=== PATIENT | female | born 1980 | race Caucasian/White ===

== ENCOUNTER 2017-02-24 11:44 | Emergency (ER) | payer OTHER ==
[2017-02-24 12:03] VITALS: O2SAT 98; BMI 29.9
[2017-02-24] MEDS ORDERED: Sodium Chloride 0.9% 1,000 ML IV STA (12:19)
[2017-02-24] MEDS ORDERED: DiphenhydrAMINE 50 mg/ml Inj IVP STA (12:20)
--- NOTE | 2017-02-24 12:30 | ED PDOC ---
Arrival/HPI - General Chief Complaint: Headache Time Seen by Provider: 02/24/17 12:07 Historian: Patient, Spouse - History of Present Illness Narrative History of Present Illness (Text): 02/24/17 12:27 36 year old female whose past medical history includes headaches presents to the emergency department with 4 day duration of right sided facial pain and headache. History translated by patient's . Patient states this is not the worst headache of her life and feels similar to previous headaches. Patient also reports nausea and vomiting today. Patient reports she took Tylenol with no relief. Time/Duration: < week Symptom Onset: Gradual Symptom Course: Unchanged Modifying Factors (Text): Tylenol with no relief Past Medical History - Provider Review Nursing Documentation Reviewed: Yes - Past History Past History: No Previous - Infectious Disease Hx of Infectious Diseases: None - Tetanus Immunization Tetanus Immunization: Unknown - Past Medical History Past Medical History: No Previous - Cardiac Hx Cardiac Disorders: No - Pulmonary Hx Respiratory Disorders: Yes Hx Pulmonary Embolism: Yes - Neurological Hx Neurological Disorder: No - HEENT Hx HEENT Disorder: No - Renal Hx Renal Disorder: No - Endocrine/Metabolic Hx Endocrine Disorders: No - Hematological/Oncological Hx Blood Disorders: Yes Other/Comment: 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 - Integumentary Hx Dermatological Disorder: No - Musculoskeletal/Rheumatological Hx Musculoskeletal Disorders: No - Gastrointestinal Hx Gastrointestinal Disorders: No - Genitourinary/Gynecological Hx Genitourinary Disorders: No - Psychiatric Hx Psychophysiologic Disorder: No Hx Depression: No Hx Emotional Abuse: No Hx Physical Abuse: No Hx Substance Use: No - Past Surgical History Past Surgical History: No Previous - Suicidal Assessment Feels Threatened In Home Enviroment: No Family/Social History - Physician Review Nursing Documentation Reviewed: Yes Family/Social History: Unknown Family HX Smoking Status: Never Smoked Hx Alcohol Use: Yes Hx Substance Use: No Hx Substance Use Treatment: No Allergies/Home Meds Allergies/Adverse Reactions: Allergies No Known Allergies Allergy (Verified 02/24/17 12:00) Review of Systems - Physician Review All systems were reviewed & negative as marked: Yes Physical Exam - Physical Exam Narrative Physical Exam (Text): - Review of Systems Constitutional: Normal. absent: Fatigue, Weight Change, Fevers Eyes: Normal ENT: Normal Respiratory: Normal absent: SOB, Cough, Sputum Cardiovascular: Normal absent: Chest pain, Palpitations, Syncope Gastrointestinal: Nausea, Vomiting absent: Abdominal pain, Diarrhea Genitourinary: Normal. absent: Dysuria, Frequency, Hematuria Musculoskeletal: Normal. absent: Arthralgias, Back Pain, Neck Pain Skin: Normal Neurological: Right sided facial pain, Headache absent: Focal Weakness Endocrine: Normal Hemo/Lymphatic: Normal Psychiatric: Normal - Physical exam Patient appears age appropriate, speaking full sentences without difficulty - Systems Exam Head: Present: Atraumatic, Normocephalic Pupils: Present: PERRL Extraocular Muscles: Present: EOMI Conjunctiva: Present: Normal Mouth: Present: Moist Mucous Membranes Neck: Present: Normal Range of Motion. No: MIDLINE TENDERNESS, Paraspinal Tenderness Respiratory/Chest: Present: Clear to Auscultation, Good Air Exchange. No: Respiratory Distress, Accessory Muscle Use, Tachypnic Cardiovascular: Present: Regular Rate and Rhythm, Normal S1, S2, Peripheral Pulses Present. No: Murmurs Abdomen: Present: Normal Bowel Sounds, No: Tenderness, Peritoneal Signs, Rebound, Guarding, Distention Back: Present: Normal Inspection. No: Midline Tenderness, Paraspinal Tenderness Upper Extremity: Present: Normal Inspection. No: Cyanosis, Edema Lower Extremity: Present: Normal Inspection. No: Edema Neurological: Present: GCS=15, Speech Normal, cranial nerves II through XII fully intact with no cerebellar abnormality, neuro-sensory fully intact. No focal neurological deficits. Skin: Present: Warm, Dry, Normal Color. No: Rashes Lymphatic: Present: OX3, NI, NC Psychiatric: Present: Alert, Oriented x 3, Normal Insight, Normal Concentration 02/24/17 12:31 Vital Signs Reviewed: Yes Vital Signs Temp Pulse Resp BP Pulse Ox 02/24/17 15:55 97.1 F L 69 12 104/53 L 98 02/24/17 14:00 70 18 114/70 98 02/24/17 12:02 98.7 F 80 17 103/68 98 Temperature: Afebrile Blood Pressure: Normal Pulse: Regular Respiratory Rate: Normal Appearance: Positive for: Well-Appearing, Non-Toxic, Comfortable Pain Distress: None Mental Status: Positive for: Alert and Oriented X 3 Medical Decision Making ED Course and Treatment: Impression: 36 year old female whose past medical history includes headaches presents to the emergency department with 4 day duration of right sided facial pain and headache. On physical exam, patient has no acute findings. Differential Diagnosis included but are not limited to: headache Plan: -- Labs -- Benadryl, Toradol, Reglan -- Reassess and disposition Prior Visits: Notes and results from previous visits were reviewed. Patient last seen in the ED on 07/15/16 for URI symptoms and discharged home with Medrol dose pack. 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 PROCEDURE: CT HEAD WITHOUT CONTRAST. Trouble Tracer : Bethany Park MD IMPRESSION: No acute intracranial abnormality. 02/24/17 17:16 On reevaluation, patient states that she feels much better and would like to be discharged home. Patient states that her headache has fully resolved and now she has no complaints No focal neurological deficits on reexamination Pt states she understands to return to the ER right away for new or worsening symptoms or for inability to f/u with PMD or specialist as instructed. Patient states that she fully agrees with and understands discharge instructions. States that she agrees with the plan and disposition. Verbalized and repeated discharge instructions and plan. I have given the patient opportunity to ask any additional questions. - Lab Interpretations Lab Results: 02/24/17 13:12 02/24/17 13:12 Lab Results 02/24/17 13:12: Sodium 140, Potassium 3.8, Chloride 103, Carbon Dioxide 26, Anion Gap 15, BUN 12, Creatinine 0.7, Est GFR ( Amer) > 60, Est GFR (Non- Af Amer) > 60, Random Glucose 89, Calcium 9.7, Total Bilirubin 0.7, AST 25, ALT 33, Alkaline Phosphatase 71, Total Protein 9.0 H, Albumin 4.7, Globulin 4.3, Albumin/Globulin Ratio 1.1, Lipase 65 02/24/17 13:12: WBC 7.8, RBC 4.18, Hgb 13.2, Hct 39.3, MCV 94.0, MCH 31.6, MCHC 33.6, RDW 12.9, Plt Count 323, MPV 9.5, Gran % 77.2 H, Lymph % (Auto) 19.3 L, Mckean % (Auto) 2.7, Eos % (Auto) 0.3 L, Baso % (Auto) 0.5, Gran # 6.05, Lymph # 1.5, Mckean # 0.2, Eos # 0.0, Baso # 0.04 - RAD Interpretation Radiology Orders: 02/24/17 13:32 HEAD W/O CONTRAST [CT] Stat - Medication Orders Current Medication Orders: Discontinued Medications Diphenhydramine HCl (Benadryl) 25 mg IVP STAT STA Stop: 02/24/17 12:21 Last Admin: 02/24/17 13:55 Dose: 25 mg Sodium Chloride (Sodium Chloride 0.9%) 1,000 mls @ 1,000 mls/hr IV .Q1H STA Stop: 02/24/17 13:18 Last Admin: 02/24/17 13:55 Dose: 1,000 mls/hr Ketorolac Tromethamine (Toradol) 15 mg IVP STAT STA Stop: 02/24/17 12:20 Last Admin: 02/24/17 13:54 Dose: 15 mg Metoclopramide HCl (Reglan) 10 mg IVP STAT STA Stop: 02/24/17 12:21 Last Admin: 02/24/17 13:55 Dose: 10 mg - Scribe Statement The provider has reviewed the documentation as recorded by the Tyree Swann Provider Scribe Attestation: All medical record entries made by the Tyree were at my direction and personally dictated by me. I have reviewed the chart and agree that the record accurately reflects my personal performance of the history, physical exam, medical decision making, and the department course for this patient. I have also personally directed, reviewed, and agree with the discharge instructions and disposition. Disposition/Present on Arrival - Present on Arrival Any Indicators Present on Arrival: No History of DVT/PE: No History of Uncontrolled Diabetes: No Urinary Catheter: No History of Decub. Ulcer: No History Surgical Site Infection Following: None - Disposition Have Diagnosis and Disposition been Completed?: Yes Diagnosis: Headache Disposition: HOME/ ROUTINE Disposition Time: 17:17 Patient Plan: Discharge Condition: GOOD Discharge Instructions (ExitCare): Acute Headache (ED) Additional Instructions: PLEASE RETURN TO THE EMERGENCY DEPARTMENT FOR NEW OR WORSENING SYMPTOMS. RETURN RIGHT AWAY IF YOU CANNOT FOLLOW UP WITH YOUR PRIMARY CARE DOCTOR, CLINIC, OR SPECIALIST IN 1-2 DAYS. Prescriptions: Ibuprofen [Motrin] 600 mg PO Q8 PRN #12 tab PRN Reason: Pain, Moderate (4-7) Referrals: Jason Deluna MD [Primary Care Provider] - Follow up with primary Forms: WORK NOTE
[2017-02-24 13:13] LABS: ADD MANUAL DIFF? NO
[2017-02-24 13:18] LABS: BASO # 0.04 K/mm3 (0.0-2.0); BASO % 0.5 % (0.0-3.0); EOS % 0.3 % (1.5-5.0); GRAN # 6.05 (1.4-6.5); GRAN % 77.2 % (50.0-68.0); HEMATOCRIT 39.3 % (36.0-48.0); LYMPH # 1.5 (1.2-3.4); LYMPH % 19.3 % (22.0-35.0); MEAN CORPUSCULAR HEMOGLOBIN 31.6 pg (25.0-35.0); MEAN CORPUSCULAR HGB CONC 33.6 g/dl (31.0-37.0); MEAN PLATELET VOLUME 9.5 fl (7.0-11.0); MONO # 0.2 (0.1-0.6); MONO % 2.7 % (1.0-6.0); PLATELET COUNT 323 10^3/uL (120.0-450.0); RED CELL DISTRIBUTION WIDTH 12.9 % (11.5-14.5); WHITE BLOOD COUNT 7.8 10^3/ul (4.5-11.0)
[2017-02-24 13:31] LABS: ALB/GLOB RATIO 1.1 (1.1-1.8); ALKALINE PHOSPHATASE 71 U/L (38-133); ALT/SGPT 33 U/L (7-56); AST/SGOT 25 U/L (15-39); BILIRUBIN,TOTAL 0.7 mg/dL (0.2-1.3); BLOOD UREA NITROGEN 12 mg/dL (7-21); CALCIUM 9.7 mg/dL (8.4-10.5); CARBON DIOXIDE 26 mmol/L (21-33); CHLORIDE 103 mmol/L (98-107); GFR AFRICAN-AMERICAN > 60; GLUCOSE,RANDOM 89 mg/dL (70-110); LIPASE 65 U/L (23-300); POTASSIUM 3.8 mmol/L (3.6-5.0); SODIUM 140 mmol/L (132-148)
--- NOTE | 2017-02-24 15:35 | CT ---
PROCEDURE: CT HEAD WITHOUT CONTRAST. HISTORY: Headache COMPARISON: None available. TECHNIQUE: Axial computed tomography images were obtained through the head/brain without intravenous contrast. Radiation dose: Total exam DLP = 688.92 mGy-cm. This CT exam was performed using one or more of the following dose reduction techniques: Automated exposure control, adjustment of the mA and/or kV according to patient size, and/or use of iterative reconstruction technique. FINDINGS: HEMORRHAGE: No intracranial hemorrhage. BRAIN: Estevez-white matter differentiation is preserved. There is no mass, mass effect or abnormal extra-axial fluid collection. There is normal density in the larger dural venous sinuses. VENTRICLES: The ventricles are normal in size, shape and configuration. CALVARIUM: The skull base and calvarium are normal PARANASAL SINUSES: Predominantly clear. MASTOID AIR CELLS: Predominantly clear. OTHER FINDINGS: None. IMPRESSION: No acute intracranial abnormality.
[2017-02-24 15:57] VITALS: BP 104/53; PULSE 69; RESP 12; TEMP 97.1
== END 2017-02-24 17:41 | disposition home or self-care (01) ==
LOC: ED 11:44
DX: R51 Headache (principal)
CPT/HCPCS: 70450; 80053; 83690; 85025; 96361; 96374; 96375; 99285; J1200; J1885; J2765; J7040

== ENCOUNTER 2017-11-20 07:46 | Emergency (ER) | payer OTHER ==
[2017-11-20 07:46] VITALS: BMI 29.9
--- NOTE | 2017-11-20 08:37 | ED PDOC ---
Arrival/HPI - General Chief Complaint: Flu-like Symptoms Time Seen by Provider: 11/20/17 08:11 Historian: Patient, Spouse - History of Present Illness Narrative History of Present Illness (Text): you were treated in the ED today for history of pulmonary embolism during your and you completed blood thinning injections, but now here with nasal congestion, body aches and fevers, sore throat but otherwise without any nausea/ vomiting/headache/dizziness/difficulty breathing/chest pain/abdomen pain/ numbness/tingling/loss of limb function/pain with urination. 11/20/17 08:34 Time/Duration: Other (2 days) Symptom Onset: Gradual Symptom Course: Unchanged Quality: Aching Severity Level: 3 Activities at Onset: Rest Context: Sitting Past Medical History - Provider Review Nursing Documentation Reviewed: Yes - Travel History Have you recently traveled outside [place] w/in the past 3 mons?: No - Past History Past History: No Previous - Infectious Disease Hx of Infectious Diseases: None - Tetanus Immunization Tetanus Immunization: Unknown - Past Medical History Past Medical History: No Previous - Cardiac Hx Cardiac Disorders: No - Pulmonary Hx Respiratory Disorders: Yes Hx Pulmonary Embolism: Yes - Neurological Hx Neurological Disorder: No - HEENT Hx HEENT Disorder: No - Renal Hx Renal Disorder: No - Endocrine/Metabolic Hx Endocrine Disorders: No - Hematological/Oncological Hx Blood Disorders: Yes Other/Comment: 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 - Integumentary Hx Dermatological Disorder: No - Musculoskeletal/Rheumatological Hx Musculoskeletal Disorders: No - Gastrointestinal Hx Gastrointestinal Disorders: No - Genitourinary/Gynecological Hx Genitourinary Disorders: No - Psychiatric Hx Psychophysiologic Disorder: No Hx Substance Use: No - Past Surgical History Past Surgical History: No Previous - Suicidal Assessment Feels Threatened In Home Enviroment: No Family/Social History - Physician Review Nursing Documentation Reviewed: Yes Family/Social History: No Known Family HX Smoking Status: Never Smoked Hx Alcohol Use: Yes Hx Substance Use: No Hx Substance Use Treatment: No Allergies/Home Meds Allergies/Adverse Reactions: Allergies No Known Allergies Allergy (Verified 11/20/17 07:58) Home Medications: Home Meds Medication Instructions Recorded Confirmed No Known Home Med 11/20/17 11/20/17 Review of Systems - Review of Systems Constitutional: Fevers Eyes: Normal ENT: Normal, Sore Throat, Rhinorrhea Respiratory: Normal Cardiovascular: Normal Gastrointestinal: Normal Genitourinary Female: Normal Musculoskeletal: Myalgias Skin: Normal Neurological: Normal Endocrine: Normal Hemo/Lymphatic: Normal Psychiatric: Normal Physical Exam Vital Signs Reviewed: Yes Vital Signs Temp Pulse Resp BP Pulse Ox 11/20/17 10:03 99.5 F 105 H 16 98 11/20/17 07:55 99.3 F 115 H 17 103/58 L 100 Temperature: Afebrile Blood Pressure: Normal Pulse: Tachycardic Respiratory Rate: Normal Appearance: Positive for: Well-Appearing, Non-Toxic, Comfortable Pain Distress: None Mental Status: Positive for: Alert and Oriented X 3 - Systems Exam Head: Present: Atraumatic, Normocephalic Pupils: Present: PERRL Extroacular Muscles: Present: EOMI Conjunctiva: Present: Normal Ears: Present: Normal Mouth: Present: Moist Mucous Membranes Pharnyx: Present: Other (mild pharyngeal irritation wo erythema/fluctuance/ crepitus/exudates) Nose (Internal): Present: Other (sinus congestion) Neck: Present: Normal Range of Motion Respiratory/Chest: Present: Clear to Auscultation, Good Air Exchange Cardiovascular: Present: Regular Rate and Rhythm Abdomen: No: Tenderness, Distention, Normal Bowel Sounds, Peritoneal Signs, Rebound, Guarding, McBurney's Point Tender, Rovsing's Sign Present, Hernias, Feeding Tubes, Ostomy Tubes, Mass/Organomegaly, Scars, Other Back: Present: Normal Inspection Upper Extremity: Present: Normal Inspection Lower Extremity: Present: Normal Inspection Neurological: Present: GCS=15, CN II-XII Intact, Speech Normal, Motor Func Grossly Intact Skin: Present: Warm, Normal Color Psychiatric: Present: Alert, Oriented x 3, Normal Insight, Normal Concentration Medical Decision Making ED Course and Treatment: you were treated in the ED today for history of pulmonary embolism during your and you completed blood thinning injections, but now here with nasal congestion, body aches and fevers, sore throat but otherwise without any nausea/ vomiting/headache/dizziness/difficulty breathing/chest pain/abdomen pain/ numbness/tingling/loss of limb function/pain with urination. You were otherwise breathing easily, pink lips, smiling with your and speaking easily, good strength/sensation, alert/oriented, walking easily, clear lungs, no abdomen tenderness, sinus congestion, mild throat irritation without white spots and noted open airway, no fever temp 99.3, improved mildly fast heart rate 105 related to sinus discomfort and motrin given, stable breathing rate 17 , excellent oxygen level 100% room air, stable blood pressure 103/58, influenza negative, rapid strep negative, urine test negative, motrin done in the ED with improvement, counselled to drink lots of fluids and thus discharged home with . 1. Recommend rest. 2. Recommend humidified air daily for breathing/sinus relief. 3. Recommend follow-up primary care 2-3 days to review symptoms. 4. If any worsening pain, fever, chills, nausea, vomiting, difficulty breathing, numbness, loss of limb function, pain with urination or any medical condition then return to the ED. 11/20/17 09:54 11/20/17 09:55 11/20/17 10:11 Reassessment Condition: Improved - Lab Interpretations Lab Results: Lab Results 11/20/17 08:45: Grp A Beta Strep Ag Negative 11/20/17 08:26: Influenza Typ A,B (EIA) Negative for flu a/b I have reviewed the lab results: Yes - Medication Orders Current Medication Orders: Discontinued Medications Acetaminophen (Tylenol 325mg Tab) 975 mg PO STAT STA Stop: 11/20/17 09:56 Last Admin: 11/20/17 10:07 Dose: Ibuprofen (Motrin Tab) 800 mg PO STAT STA Stop: 11/20/17 08:25 Last Admin: 11/20/17 08:49 Dose: 800 mg - Scribe Statement The provider has reviewed the documentation as recorded by the Tyree Chen Provider Scribe Attestation: All medical record entries made by the Tyree were at my direction and personally dictated by me. I have reviewed the chart and agree that the record accurately reflects my personal performance of the history, physical exam, medical decision making, and the department course for this patient. I have also personally directed, reviewed, and agree with the discharge instructions and disposition. Disposition/Present on Arrival - Present on Arrival Any Indicators Present on Arrival: No History of DVT/PE: No History of Uncontrolled Diabetes: No Urinary Catheter: No History of Decub. Ulcer: No History Surgical Site Infection Following: None - Disposition Have Diagnosis and Disposition been Completed?: Yes Diagnosis: Sinus congestion, Upper respiratory infection Disposition: HOME/ ROUTINE Disposition Time: 10:12 Isolation: Droplet Patient Plan: Discharge Condition: IMPROVED Print Language: IRISH Additional Instructions: you were treated in the ED today for history of pulmonary embolism during your and you completed blood thinning injections, but now here with nasal congestion, body aches and fevers, sore throat but otherwise without any nausea/ vomiting/headache/dizziness/difficulty breathing/chest pain/abdomen pain/ numbness/tingling/loss of limb function/pain with urination. You were otherwise breathing easily, pink lips, smiling with your and speaking easily, good strength/sensation, alert/oriented, walking easily, clear lungs, no abdomen tenderness, sinus congestion, mild throat irritation without white spots and noted open airway, no fever temp 99.3, improved mildly fast heart rate 105 related to sinus discomfort and motrin given, stable breathing rate 17 , excellent oxygen level 100% room air, stable blood pressure 103/58, influenza negative, rapid strep negative, urine test negative, motrin done in the ED with improvement, counselled to drink lots of fluids and thus discharged home with . 1. Recommend rest. 2. Recommend humidified air daily for breathing/sinus relief. 3. Recommend follow-up primary care 2-3 days to review symptoms. 4. If any worsening pain, fever, chills, nausea, vomiting, difficulty breathing, numbness, loss of limb function, pain with urination or any medical condition then return to the ED. Forms: [facility] (Frisian), WORK NOTE
[2017-11-20 10:03] VITALS: PULSE 105; RESP 16; TEMP 99.5; O2SAT 98
[2017-11-20 10:22] VITALS: BP 109/67
== END 2017-11-20 10:23 | disposition home or self-care (01) ==
LOC: ED 07:46
DX: J06.9 Acute upper respiratory infection, unspecified (principal); R09.81 Nasal congestion

== ENCOUNTER 2017-12-05 09:58 | Emergency (ER) | payer OTHER ==
[2017-12-05 09:59] VITALS: BMI 29.9
[2017-12-05] MEDS ORDERED: Sodium Chloride 0.9% 1,000 ML IV STA (11:24)
--- NOTE | 2017-12-05 11:38 | ED PDOC ---
Arrival/HPI - General Chief Complaint: Abdominal Pain Time Seen by Provider: 12/05/17 11:24 Historian: Patient - History of Present Illness Narrative History of Present Illness (Text): 12/05/17 11:30 Berenice Ulloa is a 37 year old female who presents to the emergency department complaining of vomiting, diarrhea, and abdominal pain since this morning. Patient notes that her son has the same symptoms at home. She describes the pain as an epigastric burning that started after the vomiting. Patient denies any fever, rhinorrhea, cough, urinary symptoms, or any other complaints at this time. 12/05/17 15:40 Time/Duration: 4-6 hours Symptom Onset: Gradual Symptom Course: Unchanged Activities at Onset: Light Context: Home Past Medical History - Provider Review Nursing Documentation Reviewed: Yes - Past History Past History: No Previous - Infectious Disease Hx of Infectious Diseases: None - Tetanus Immunization Tetanus Immunization: Unknown - Past Medical History Past Medical History: No Previous - Cardiac Hx Cardiac Disorders: No - Pulmonary Hx Respiratory Disorders: Yes Hx Pulmonary Embolism: Yes - Neurological Hx Neurological Disorder: No - HEENT Hx HEENT Disorder: No - Renal Hx Renal Disorder: No - Endocrine/Metabolic Hx Endocrine Disorders: No - Hematological/Oncological Hx Blood Disorders: Yes Other/Comment: 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 - Integumentary Hx Dermatological Disorder: No - Musculoskeletal/Rheumatological Hx Musculoskeletal Disorders: No - Gastrointestinal Hx Gastrointestinal Disorders: No - Genitourinary/Gynecological Hx Genitourinary Disorders: No - Psychiatric Hx Psychophysiologic Disorder: No Hx Substance Use: No - Past Surgical History Past Surgical History: No Previous - Suicidal Assessment Feels Threatened In Home Enviroment: No Family/Social History - Physician Review Nursing Documentation Reviewed: Yes Family/Social History: No Known Family HX Smoking Status: Never Smoked Hx Alcohol Use: Yes Hx Substance Use: No Hx Substance Use Treatment: No Allergies/Home Meds Allergies/Adverse Reactions: Allergies No Known Allergies Allergy (Verified 11/20/17 07:58) Home Medications: Home Meds Medication Instructions Recorded Confirmed No Known Home Med 11/20/17 11/20/17 Review of Systems - Physician Review All systems were reviewed & negative as marked: Yes - Review of Systems Constitutional: Fevers (subjective). absent: Night Sweats Eyes: absent: Vision Changes ENT: absent: Hearing Changes Respiratory: absent: Cough Cardiovascular: absent: Chest Pain Gastrointestinal: Abdominal Pain (epigastric), Diarrhea, Nausea, Vomiting Genitourinary Female: absent: Dysuria, Frequency Musculoskeletal: absent: Arthralgias Skin: absent: Rash, Pruritis Neurological: absent: Headache Endocrine: absent: Diaphoresis Hemo/Lymphatic: absent: Adenopathy Psychiatric: absent: Anxiety, Depression Physical Exam Vital Signs Reviewed: Yes Vital Signs Temp Pulse Resp BP Pulse Ox 12/05/17 11:53 98.3 F 73 18 109/58 L 99 Temperature: Afebrile Blood Pressure: Normal Pulse: Regular Respiratory Rate: Normal Appearance: Positive for: Well-Appearing, Non-Toxic, Comfortable Pain Distress: None Mental Status: Positive for: Alert and Oriented X 3 - Systems Exam Head: Present: Atraumatic, Normocephalic Pupils: Present: PERRL Extroacular Muscles: Present: EOMI Conjunctiva: Present: Normal Mouth: Present: Moist Mucous Membranes Neck: Present: Normal Range of Motion Respiratory/Chest: Present: Clear to Auscultation, Good Air Exchange. No: Respiratory Distress, Accessory Muscle Use Cardiovascular: Present: Regular Rate and Rhythm, Normal S1, S2. No: Murmurs Abdomen: Present: Normal Bowel Sounds. No: Tenderness, Distention, Peritoneal Signs, Rebound, Guarding Back: Present: Normal Inspection Upper Extremity: Present: Normal Inspection. No: Cyanosis, Edema Lower Extremity: Present: Normal Inspection. No: Edema Neurological: Present: GCS=15, CN II-XII Intact, Speech Normal Skin: Present: Warm, Dry, Normal Color. No: Rashes Psychiatric: Present: Alert, Oriented x 3, Normal Insight, Normal Concentration Medical Decision Making ED Course and Treatment: 12/05/17 11:38 Impression: 37 year old female complaining of vomiting, diarrhea, and abdominal pain since this morning. Abdomen soft NT/ND Differential Diagnosis included but are not limited to: Plan: -- Urinalysis -- Labs -- Pepcid, Toradol, Zofran, and IV fluids -- Reassess and disposition Prior Visits: Notes and results from previous visits were reviewed. Patient was last seen in the emergency department on 11/20/17 for nasal congestion, body aches and fevers , sore throat. Patient was discharged home. Progress Notes: 12/05/17 13:45 Labs reviewed and grossly normal. No urinary complaints. She is now tolerating po and continues to have soft NT/ND abdomen. Given detailed return instructions. - Lab Interpretations Lab Results: 12/05/17 12:00 12/05/17 12:00 Lab Results 12/05/17 12:00: Sodium 141, Potassium 4.4, Chloride 107, Carbon Dioxide 22, Anion Gap 17, BUN 9, Creatinine 0.5 L, Est GFR ( Amer) > 60, Est GFR (Non -Af Amer) > 60, Random Glucose 92, Calcium 9.1, Total Bilirubin 0.5, AST 26, ALT 24, Alkaline Phosphatase 71, Total Protein 7.8, Albumin 4.1, Globulin 3.7, Albumin/Globulin Ratio 1.1, Lipase 105 12/05/17 12:00: Urine Color Yellow, Urine Appearance Clear, Urine pH 5.5, Ur Specific [place] >= 1.030, Urine Protein 30 H, Urine Glucose (UA) Negative, Urine Ketones Trace H, Urine Blood Trace-intact H, Urine Nitrate Negative, Urine Bilirubin Negative, Urine Urobilinogen 0.2, Ur Leukocyte Esterase Negative , Urine RBC 2 - 5, Urine WBC 0 - 2, Ur Epithelial Cells 3 - 4, Amorphous Sediment Few, Urine Bacteria Many, Urine Other Uyeast 12/05/17 12:00: WBC 6.7, RBC 3.88, Hgb 11.6 L, Hct 37.2, MCV 95.9, MCH 29.9, MCHC 31.2, RDW 13.7, Plt Count 320, MPV 9.8, Gran % 81.4 H, Lymph % (Auto) 13.7 L, [place] % (Auto) 4.5, Eos % (Auto) 0.3 L, Baso % (Auto) 0.1, Gran # 5.46, Lymph # (Auto) 0.9 L, [place] # (Auto) 0.3, Eos # (Auto) 0.0, Baso # (Auto) 0.01 - Medication Orders Current Medication Orders: Discontinued Medications Famotidine (Pepcid) 20 mg IVP STAT STA Stop: 12/05/17 11:32 Last Admin: 12/05/17 11:40 Dose: 20 mg IVP Administration Document 12/05/17 11:40 EQ (Rec: 12/05/17 11:40 EQ [id number]) Charges for Administration # of IVP Administrations 1 Sodium Chloride (Sodium Chloride 0.9%) 1,000 mls @ 999 mls/hr IV .Q1H1M STA Stop: 12/05/17 12:24 Last Admin: 12/05/17 11:40 Dose: 999 mls/hr eMAR Start Stop Document 12/05/17 11:40 EQ (Rec: 12/05/17 11:40 EQ [id number]) Intravenous Solution Start Date 12/05/17 Start Time 11:40 Ketorolac Tromethamine (Toradol) 30 mg IVP STAT STA Stop: 12/05/17 11:25 Last Admin: 12/05/17 11:40 Dose: 30 mg MAR Pain Assessment Document 12/05/17 11:40 EQ (Rec: 12/05/17 11:40 EQ [id number]) Pain Reassessment Is this a pain reassessment? No Sleep Is patient sleeping during reassessment? No Presence of Pain Presence of Pain Yes IVP Administration Document 12/05/17 11:40 EQ (Rec: 12/05/17 11:40 EQ [id number]) Charges for Administration # of IVP Administrations 1 Ondansetron HCl (Zofran Inj) 4 mg IVP STAT STA Stop: 12/05/17 11:32 Last Admin: 12/05/17 11:39 Dose: 4 mg IVP Administration Document 12/05/17 11:39 EQ (Rec: 12/05/17 11:39 EQ [id number]) Charges for Administration # of IVP Administrations 1 - Scribe Statement The provider has reviewed the documentation as recorded by the Tyree Norman Provider Scribe Attestation: All medical record entries made by the Scribe were at my direction and personally dictated by me. I have reviewed the chart and agree that the record accurately reflects my personal performance of the history, physical exam, medical decision making, and the department course for this patient. I have also personally directed, reviewed, and agree with the discharge instructions and disposition. Disposition/Present on Arrival - Present on Arrival Any Indicators Present on Arrival: No History of DVT/PE: No History of Uncontrolled Diabetes: No Urinary Catheter: No History of Decub. Ulcer: No History Surgical Site Infection Following: None - Disposition Have Diagnosis and Disposition been Completed?: Yes Diagnosis: Gastroenteritis Disposition: HOME/ ROUTINE Disposition Time: 13:45 Patient Plan: Discharge Condition: GOOD Discharge Instructions (ExitCare): Gastroenteritis (ED) Additional Instructions: Follow up with PMD within 2 days. Return to ED if condition worsens. Referrals: Tiffany Castellano DO [Primary Care Provider] - Follow up with primary Forms: [employer] ([place])
[2017-12-05 11:54] VITALS: BP 109/58; PULSE 73; RESP 18; TEMP 98.3; O2SAT 99
[2017-12-05 12:07] LABS: BASO # 0.01 K/mm3 (0.0-2.0); BASO % 0.1 % (0.0-3.0); EOS % 0.3 % (1.5-5.0); GRAN # 5.46 (1.4-6.5); GRAN % 81.4 % (50.0-68.0); HEMOGLOBIN 11.6 g/dL (12.0-16.0); LYMPH # 0.9 (1.2-3.4); LYMPH % 13.7 % (22.0-35.0); MEAN CELL VOLUME 95.9 fl (80.0-105.0); MEAN CORPUSCULAR HEMOGLOBIN 29.9 pg (25.0-35.0); MEAN CORPUSCULAR HGB CONC 31.2 g/dl (31.0-37.0); MEAN PLATELET VOLUME 9.8 fl (7.0-11.0); MONO # 0.3 (0.1-0.6); MONO % 4.5 % (1.0-6.0); RBC 3.88 10^6/uL (3.5-6.1); RED CELL DISTRIBUTION WIDTH 13.7 % (11.5-14.5); WHITE BLOOD COUNT 6.7 10^3/ul (4.5-11.0)
[2017-12-05 12:11] LABS: PH,URINE 5.5 (4.7-8.0); URINE APPEARANCE CLEAR (CLEAR); URINE BILIRUBIN NEGATIVE (NEGATIVE); URINE BLOOD TRACE-INTACT (NEGATIVE); URINE COLOR YELLOW (YELLOW); URINE GLUCOSE (UA) NEGATIVE (NEGATIVE); URINE LEUKOCYTE ESTERASE NEGATIVE Leu/uL (NEGATIVE); URINE NITRATE NEGATIVE (NEGATIVE); URINE PROTEIN 30 mg/dL (<30 mg/dL); URINE UROBILINOGEN 0.2 E.U./dL (<1 E.U./dL)
[2017-12-05 12:19] LABS: ALB/GLOB RATIO 1.1 (1.1-1.8); ALBUMIN 4.1 g/dL (3.0-4.8); CALCIUM 9.1 mg/dL (8.4-10.5); GFR AFRICAN-AMERICAN > 60; GFR NON-AFRICAN AMERICAN > 60; LIPASE 105 U/L (23-300)
[2017-12-05 12:34] LABS: ALT/SGPT 24 U/L (7-56); AST/SGOT 26 U/L (14-36); BLOOD UREA NITROGEN 9 mg/dL (7-21)
[2017-12-05 12:52] LABS: URINE WBC 0 - 2 /hpf (0-6)
[2017-12-05 12:53] LABS: URINE AMORPHOUS SEDIMENT FEW; URINE BACTERIA MANY (NEG)
== END 2017-12-05 14:09 | disposition home or self-care (01) ==
LOC: ED 09:58
DX: K52.9 Noninfective gastroenteritis and colitis, unspecified (principal)
CPT/HCPCS: 80053; 81001; 83690; 85025; 96374; 96375; 99283; J1885; J2405; J7040

== ENCOUNTER 2018-04-05 05:57 | Observation (INO) | payer OTHER ==
--- NOTE | 2018-04-05 06:31 | ED PDOC ---
Arrival/HPI - General Chief Complaint: Chest Pain Time Seen by Provider: 04/05/18 06:19 Historian: Patient - History of Present Illness Narrative History of Present Illness (Text): 04/05/18 06:28 Pt. to Emergency department Past medical history PE during ,with complaint of intermittent chest discomfort starting last night described as pressure-like.Some associated shortness of breath.No fever/chills or cough.No nausea,vomiting or diarrhea. Past Medical History - Provider Review Nursing Documentation Reviewed: Yes - Travel History Have you recently traveled outside [place] w/in the past 3 mons?: No - Past History Past History: No Previous - Infectious Disease Hx of Infectious Diseases: None - Tetanus Immunization Tetanus Immunization: Unknown - Past Medical History Past Medical History: No Previous - Cardiac Hx Cardiac Disorders: No - Pulmonary Hx Respiratory Disorders: Yes Hx Pulmonary Embolism: Yes - Neurological Hx Neurological Disorder: No - HEENT Hx HEENT Disorder: No - Renal Hx Renal Disorder: No - Endocrine/Metabolic Hx Endocrine Disorders: No - Hematological/Oncological Hx Blood Disorders: Yes Other/Comment: 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 - Integumentary Hx Dermatological Disorder: No - Musculoskeletal/Rheumatological Hx Musculoskeletal Disorders: No - Gastrointestinal Hx Gastrointestinal Disorders: No - Genitourinary/Gynecological Hx Genitourinary Disorders: No - Psychiatric Hx Psychophysiologic Disorder: No Hx Substance Use: No - Past Surgical History Past Surgical History: No Previous - Suicidal Assessment Feels Threatened In Home Enviroment: No Family/Social History - Physician Review Nursing Documentation Reviewed: Yes Family/Social History: CAD/ME Smoking Status: Never Smoked Hx Alcohol Use: Yes Hx Substance Use: No Hx Substance Use Treatment: No Allergies/Home Meds Allergies/Adverse Reactions: Allergies No Known Allergies Allergy (Verified 11/20/17 07:58) Home Medications: Home Meds Medication Instructions Recorded Confirmed No Known Home Med 11/20/17 11/20/17 Review of Systems - Review of Systems Constitutional: Normal Eyes: Normal ENT: Normal Respiratory: Normal Cardiovascular: Chest Pain Gastrointestinal: Normal Genitourinary Female: Normal Musculoskeletal: Normal Skin: Normal Neurological: Normal Endocrine: Normal Hemo/Lymphatic: Normal Psychiatric: Normal Physical Exam Vital Signs Temp Pulse Resp BP Pulse Ox 04/05/18 05:59 98.2 F 79 18 134/80 99 Temperature: Afebrile Blood Pressure: Normal Pulse: Regular Respiratory Rate: Normal Appearance: Positive for: Well-Appearing, Non-Toxic, Comfortable Pain Distress: None Mental Status: Positive for: Alert and Oriented X 3 - Systems Exam Head: Present: Atraumatic, Normocephalic Pupils: Present: PERRL Extroacular Muscles: Present: EOMI Conjunctiva: Present: Normal Mouth: Present: Moist Mucous Membranes Neck: Present: Normal Range of Motion Respiratory/Chest: Present: Clear to Auscultation, Good Air Exchange. No: Respiratory Distress, Accessory Muscle Use Cardiovascular: Present: Regular Rate and Rhythm, Normal S1, S2. No: Murmurs Abdomen: No: Tenderness, Distention, Peritoneal Signs Back: Present: Normal Inspection Upper Extremity: Present: Normal Inspection. No: Cyanosis, Edema Lower Extremity: Present: Normal Inspection, NORMAL PULSES, Normal ROM, Neurovascularly Intact. No: Edema, CALF TENDERNESS, Steve's Sign Neurological: Present: GCS=15, CN II-XII Intact, Speech Normal, Motor Func Grossly Intact, Normal Sensory Function Skin: Present: Warm, Dry, Normal Color. No: Rashes Psychiatric: Present: Alert, Oriented x 3, Normal Insight, Normal Concentration Medical Decision Making ED Course and Treatment: 04/05/18 07:00 Case endorsed to /pending labs/Chest X-ray/reassess/final disposition - EKG Interpretation EKG Interpretation (Text): 04/05/18 06:37 EKG-NSR@69 with sinus arrhythmia,no acute changes Interpreted by ED Physician: Yes Type: 12 lead EKG Disposition/Present on Arrival - Present on Arrival Any Indicators Present on Arrival: No History of DVT/PE: No History of Uncontrolled Diabetes: No Urinary Catheter: No History of Decub. Ulcer: No History Surgical Site Infection Following: None - Disposition Have Diagnosis and Disposition been Completed?: No Diagnosis: Chest pain Disposition Time: 07:00 Patient Problems: Current Active Problems Problem Status Onset Chest pain Acute Condition: STABLE Discharge Instructions (ExitCare): Chest Pain (ED) Forms: [employer] ([place])
[2018-04-05 07:23] LABS: BASO # 0.06 K/mm3 (0.0-2.0); BASO % 0.5 % (0.0-3.0); EOS # 0.8 (0.0-0.7); EOS % 7.2 % (1.5-5.0); GRAN # 5.78 (1.4-6.5); GRAN % 51.7 % (50.0-68.0); HEMOGLOBIN 11.8 g/dL (12.0-16.0); LYMPH # 3.9 (1.2-3.4); LYMPH % 34.8 % (22.0-35.0); MEAN CELL VOLUME 91.4 fl (80.0-105.0); MEAN CORPUSCULAR HEMOGLOBIN 29.7 pg (25.0-35.0); MEAN CORPUSCULAR HGB CONC 32.5 g/dl (31.0-37.0); MEAN PLATELET VOLUME 9.8 fl (7.0-11.0); MONO # 0.7 (0.1-0.6); MONO % 5.8 % (1.0-6.0); RBC 3.97 10^6/uL (3.5-6.1); RED CELL DISTRIBUTION WIDTH 13.8 % (11.5-14.5); WHITE BLOOD COUNT 11.2 10^3/ul (4.5-11.0)
--- NOTE | 2018-04-05 07:27 | ED PDOC ---
Physical Exam - Physical Exam Narrative Physical Exam (Text): 04/05/18 07:27 Head: Atraumatic. Normocephalic. Eyes: PERRL. EOMI. Conjunctivae are not pale. ENT: Mucous membranes are moist and intact. Oropharynx is clear and symmetric. Neck: Supple. Full ROM. No JVD. No lymphadenopathy. Cardiovascular: Regular rate. Regular rhythm. No murmurs, rubs, or gallops. Distal pulses are 2+ and symmetric. Right chest wall tenderness on palpation. Pulmonary/Chest: No evidence of respiratory distress. Clear to auscultation bilaterally. No wheezing, rales or rhonchi. Breathing regularly at room air. O2 saturation at 100%. Abdominal: Soft and non-distended. Palpable epigastric and right upper quadrant tenderness. No rebound, guarding, or rigidity. No organomegaly. Good bowel sounds. Back: No CVA tenderness. Extremities: No edema. No cyanosis. No clubbing. Full range of motion in all extremities. No calf tenderness. Skin: Skin is warm and dry. No petechiae. No purpura. Neurological: Alert, awake, and oriented to person, place, time, and situation. Normal speech. Psychiatric: Good eye contact. Normal interaction, affect, and behavior. Vital Signs Reviewed: Yes Vital Signs Temp Pulse Resp BP Pulse Ox 04/05/18 09:33 98.3 F 80 18 117/77 100 04/05/18 05:59 98.2 F 79 18 134/80 99 Temperature: Afebrile Blood Pressure: Normal Pulse: Regular Respiratory Rate: Normal Appearance: Positive for: Well-Appearing, Non-Toxic, Comfortable Pain Distress: Mild Mental Status: Positive for: Alert and Oriented X 3 Medical Decision Making ED Course and Treatment: 04/05/18 07:31 Case endorsed to me by Dr. Gore. On reevaluation, patient reports a history of pulmonary embolism 2 years ago but states that current pain is different from past PE. On exam she has palpable epigastric right upper quadrant and right chest wall tenderness. She is not in any respiratory distress and is breathing regularly with O2 saturation at 100% at room air. Differential Diagnosis included but are not limited to: Pulmonary embolism vs. biliary colic vs. gastritis vs. pneumonia Plan: -- Labs -- CXR -- D- dimer -- Possible Ultrasound -- Reassess and disposition Progress Notes: Patient has palpable upper abdominal pain. Ddimer is unremarkable. No hypoxia. No calf pain or swelling. EKG unremarkable. Suspect possible gi etiology of symptoms. 04/05/18 08:41 Chest X-ray reviewed by radiologist, shows: FINDINGS: LUNGS: No active pulmonary disease. PLEURA: No significant pleural effusion identified, no pneumothorax apparent. CARDIOVASCULAR: Normal. OSSEOUS STRUCTURES: Thoracic spondylosis. VISUALIZED UPPER ABDOMEN: Normal. OTHER FINDINGS: None. IMPRESSION: No active disease 04/05/18 09:27 Ultrasound of Abdomen/pelvis reviewed by radiologist, shows: FINDINGS: LIVER: Measures 16.9 cm. Normal echogenicity of the liver parenchyma. No mass. No intrahepatic bile duct dilatation. GALLBLADDER: Multiple gallstones present. No gallbladder wall thickening and gallbladder wall 1.5 mm normal. No sonographic positive Cabrera's sign elicited per technologist's note. . COMMON BILE DUCT: Measures 4.4 mm. No stones. No dilatation. PANCREAS: Unremarkable as visualized. No mass. No ductal dilatation. RIGHT KIDNEY: Measures 10.5 x 4.5 x 4.5cm. Normal echogenicity. No calculus, mass, or hydronephrosis. LEFT KIDNEY: Measures 10.7 x 5.0 x 4 point sickcm. Normal echogenicity. No calculus, mass, or hydronephrosis. SPLEEN: Normal in size and contour. No mass. AORTA: No aneurysmal dilatation. IVC: Unremarkable. OTHER FINDINGS: None. IMPRESSION: Cholelithiasis. No secondary signs to suggest an imaging acute cholecystitis. 04/05/18 12:49 On reassessment, patient has persistent right upper quadrant discomfort. I feel right sided pain most likely related to gallstones as pain intermittent, severe , in this area. I reviewed results with patient and family, who assists with translation. Patient was evaluated by surgery at bedside. Due to persistent discomfort, she will be admitted under surgery communications marketing intern service. I have reviewed case with Dr. Stanley, on-call surgery, who accepts admission to his service. Mild leukocytosis noted, although afebrile and initial liver enzymes unremarkable. - Lab Interpretations Lab Results: 04/05/18 06:20 04/05/18 06:20 Lab Results 04/05/18 08:20: Urine Color Yellow, Urine Appearance Clear, Urine pH 6.5, Ur Specific [place] 1.020, Urine Protein Negative, Urine Glucose (UA) Negative, Urine Ketones Negative, Urine Blood Negative, Urine Nitrate Negative, Urine Bilirubin Negative, Urine Urobilinogen 0.2, Ur Leukocyte Esterase Negative, Urine HCG, Qual Negative 04/05/18 07:51: D-Dimer, Quantitative < 200 04/05/18 06:20: Sodium 143, Potassium 4.3, Chloride 106, Carbon Dioxide 24, Anion Gap 17, BUN 17, Creatinine 0.6 L, Est GFR ( Amer) > 60, Est GFR ( Non-Af Amer) > 60, Random Glucose 90, Calcium 9.0, Total Bilirubin 0.3, AST 32, ALT 29, Alkaline Phosphatase 63, Lactate Dehydrogenase 686, Total Creatine Kinase 168, Troponin I < 0.01, NT-Pro-B Natriuret Pep 50.2, Total Protein 8.1, Albumin 4.3, Globulin 3.8, Albumin/Globulin Ratio 1.2, Amylase 86, Lipase 164 04/05/18 06:20: PT 12.6 H, INR 1.09 H, APTT 30.5, D-Dimer, Quantitative Cancelled 04/05/18 06:20: WBC 11.2 H D, RBC 3.97, Hgb 11.8 L, Hct 36.3, MCV 91.4 D, MCH 29.7, MCHC 32.5, RDW 13.8, Plt Count 387, MPV 9.8, Gran % 51.7, Lymph % (Auto) 34.8, [place] % (Auto) 5.8, Eos % (Auto) 7.2 H, Baso % (Auto) 0.5, Gran # 5.78, Lymph # (Auto) 3.9 H, [place] # (Auto) 0.7 H, Eos # (Auto) 0.8 H, Baso # (Auto) 0.06 - RAD Interpretation Radiology Orders: 04/05/18 07:10 CHEST PORTABLE [RAD] Stat 04/05/18 08:13 ABDOMEN COMPLETE [US] Stat Animal Bounty Hunter: Radiologist - Medication Orders Current Medication Orders: Hydromorphone HCl (Dilaudid) 0.5 mg IVP Q4H PRN PRN Reason: Pain, severe (8-10) Lactated Ringer's (Lactated Ringer's) 1,000 mls @ 125 mls/hr IV .Q8H PATTI Ondansetron HCl (Zofran Inj) 4 mg IVP Q6H PRN PRN Reason: Nausea/Vomiting Pantoprazole Sodium (Protonix Inj) 40 mg IVP DAILY PATTI Discontinued Medications Famotidine (Pepcid) 20 mg IVP STAT STA Stop: 04/05/18 07:22 Last Admin: 04/05/18 07:58 Dose: 20 mg IVP Administration Document 04/05/18 07:58 [email or web address] (Rec: 04/05/18 07:58 [id number]) Charges for Administration # of IVP Administrations 1 Heparin Sodium (Porcine) (Heparin) 5,000 units SC STAT STA PRN Reason: Protocol Stop: 04/05/18 12:43 - Scribe Statement The provider has reviewed the documentation as recorded by the Scribe Noemy Garcia. All medical record entries made by the Scribe were at my direction and personally dictated by me. I have reviewed the chart and agree that the record accurately reflects my personal performance of the history, physical exam, medical decision making, and the department course for this patient. I have also personally directed, reviewed, and agree with the discharge instructions and disposition. Disposition/Present on Arrival - Present on Arrival Any Indicators Present on Arrival: No History of DVT/PE: No History of Uncontrolled Diabetes: No Urinary Catheter: No History of Decub. Ulcer: No History Surgical Site Infection Following: None - Disposition Have Diagnosis and Disposition been Completed?: Yes Diagnosis: Biliary colic, Abdominal pain Disposition: HOSPITALIZED Disposition Time: 11:00 Patient Plan: Admission Patient Problems: Current Active Problems Problem Status Onset Abdominal pain Acute Biliary colic Acute Condition: FAIR
[2018-04-05 07:32] LABS: ALB/GLOB RATIO 1.2 (1.1-1.8); ALBUMIN 4.3 g/dL (3.0-4.8); ALT/SGPT 29 U/L (7-56); AMYLASE 86 U/L (35-125); AST/SGOT 32 U/L (14-36); BLOOD UREA NITROGEN 17 mg/dL (7-21); GFR AFRICAN-AMERICAN > 60; GFR NON-AFRICAN AMERICAN > 60; LIPASE 164 U/L (23-300)
[2018-04-05 07:34] LABS: INR 1.09 (0.93-1.08); PARTIAL THROMBOPLASTIN TIME 30.5 Seconds (25.1-36.5); PROTHROMBIN TIME 12.6 SECONDS (9.4-12.5)
[2018-04-05 07:44] LABS: B-TYPE NATRIURETIC PEPTIDE 50.2 pg/mL (0-450); TROPONIN I < 0.01 ng/mL
--- NOTE | 2018-04-05 08:38 | RAD ---
HISTORY: chest pain COMPARISON: 07/15/2016 FINDINGS: LUNGS: No active pulmonary disease. PLEURA: No significant pleural effusion identified, no pneumothorax apparent. CARDIOVASCULAR: Normal. OSSEOUS STRUCTURES: Thoracic spondylosis. VISUALIZED UPPER ABDOMEN: Normal. OTHER FINDINGS: None. IMPRESSION: No active disease.
[2018-04-05 09:05] LABS: PH,URINE 6.5 (4.7-8.0); URINE BILIRUBIN NEGATIVE (NEGATIVE); URINE BLOOD NEGATIVE (NEGATIVE); URINE GLUCOSE (UA) NEGATIVE (NEGATIVE); URINE LEUKOCYTE ESTERASE NEGATIVE Leu/uL (NEGATIVE); URINE PROTEIN NEGATIVE mg/dL (<30 mg/dL); URINE UROBILINOGEN 0.2 E.U./dL (<1 E.U./dL)
[2018-04-05 09:06] LABS: HCG,QUALITATIVE URINE NEGATIVE (NEGATIVE)
[2018-04-05 09:09] LABS: URINE APPEARANCE CLEAR (CLEAR); URINE COLOR YELLOW (YELLOW)
--- NOTE | 2018-04-05 09:25 | US ---
HISTORY: upper abdominal pain COMPARISON: None. TECHNIQUE: Sonographic evaluation of the abdomen. FINDINGS: LIVER: Measures 16.9 cm. Normal echogenicity of the liver parenchyma. No mass. No intrahepatic bile duct dilatation. GALLBLADDER: . Multiple gallstones present. No gallbladder wall thickening and gallbladder wall 1.5 mm normal. No sonographic positive Cabrera's sign elicited per technologist's note. . COMMON BILE DUCT: Measures 4.4 mm. No stones. No dilatation. PANCREAS: Unremarkable as visualized. No mass. No ductal dilatation. RIGHT KIDNEY: Measures 10.5 x 4.5 x 4.5cm. Normal echogenicity. No calculus, mass, or hydronephrosis. LEFT KIDNEY: Measures 10.7 x 5.0 x 4 point sickcm. Normal echogenicity. No calculus, mass, or hydronephrosis. SPLEEN: Normal in size and contour. No mass. AORTA: No aneurysmal dilatation. IVC: Unremarkable. OTHER FINDINGS: None. IMPRESSION: Cholelithiasis. No secondary signs to suggest an imaging acute cholecystitis.
--- NOTE | 2018-04-05 12:18 | CP.PCM.CON ---
History of Present Illness - History of Present Illness History of Present Illness: General Surgery Consult Note for Dr. Stanley Reason for Consult: Recurrent symptomatic cholelithiasis 37 F with PMH that includes pulmonary embolism who presents for epigastric/RUQ pain. Patient was seen and evaluated in the ED. Patient states that her pain began last night around 1 or 2 am. Patient reports that she has had this pain two times in the past. She reports sudden onset and states pain had gotten progressively worse. She states she last ate around 8 pm. She admits to associated nausea with the pain but denies vomiting. She rates pain as severe when at worst. She describes pain as constant pressure located in epigastrium with radiation to RUQ. She also reports that intensity of pain fluctuates. She denies any specific aggravating or alleviating factors. She denies any recent illness or sick contacts. Denies fever/chills, palpitations, diarrhea, SOB, constipation, urinary symptoms, incontinence, numbness/tingling. PMH: pulmonary embolism Meds: Denies Allergy: Denies PSH: Denies FH: HTN, CAD Social: denies tobacco/illicit drug use, occasional EtOH use Review of Systems - Review of Systems All systems: reviewed and no additional remarkable complaints except (as per HPI ) Past Patient History - Infectious Disease Hx of Infectious Diseases: None - Tetanus Immunizations Tetanus Immunization: Unknown - Past Social History Smoking Status: Never Smoked - CARDIAC Hx Cardiac Disorders: No - PULMONARY Hx Respiratory Disorders: Yes Hx Pulmonary Embolism: Yes - NEUROLOGICAL Hx Neurological Disorder: No - HEENT Hx HEENT Problems: No - RENAL Hx Chronic Kidney Disease: No - ENDOCRINE/METABOLIC Hx Endocrine Disorders: No - HEMATOLOGICAL/ONCOLOGICAL Hx Blood Disorders: Yes Other/Comment: 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 - INTEGUMENTARY Hx Dermatological Problems: No - MUSCULOSKELETAL/RHEUMATOLOGICAL Hx Musculoskeletal Disorders: No - GASTROINTESTINAL Hx Gastrointestinal Disorders: No - GENITOURINARY/GYNECOLOGICAL Hx Genitourinary Disorders: No - PSYCHIATRIC Hx Psychophysiologic Disorder: No Hx Substance Use: No - SURGICAL HISTORY Hx Surgeries: No Meds Allergies/Adverse Reactions: Allergies Allergy/AdvReac Type Severity Reaction Status Date / Time No Known Allergies Allergy Verified 11/20/17 07:58 Physical Exam - Constitutional Appears: Well, Non-toxic, No Acute Distress - Head Exam Head Exam: ATRAUMATIC, NORMOCEPHALIC - Eye Exam Eye Exam: EOMI, Normal appearance Pupil Exam: PERRL - ENT Exam ENT Exam: Mucous Membranes Moist - Neck Exam Neck exam: Positive for: Normal Inspection - Respiratory Exam Respiratory Exam: NORMAL BREATHING PATTERN - Cardiovascular Exam Cardiovascular Exam: REGULAR RHYTHM, +S1, +S2 - GI/Abdominal Exam GI & Abdominal Exam: Normal Bowel Sounds, Soft, Tenderness (epigastric/RUQ). absent: Distended, Firm, Guarding, Hernia, Rebound, Rigid - Extremities Exam Extremities exam: Positive for: normal capillary refill, pedal pulses present. Negative for: calf tenderness - Back Exam Back exam: absent: CVA tenderness (L), CVA tenderness (R) - Neurological Exam Neurological exam: Alert, CN II-XII Intact, Oriented x3 - Psychiatric Exam Psychiatric exam: Normal Affect, Normal Mood - Skin Skin Exam: Dry, Intact, Normal Color, Warm Results - Vital Signs Recent Vital Signs: Last Vital Signs Temp 98.3 F 04/05/18 09:33 Pulse 80 04/05/18 09:33 Resp 18 04/05/18 09:33 BP 117/77 04/05/18 09:33 Pulse Ox 100 04/05/18 09:33 - Labs Result Diagrams: 04/05/18 06:20 04/05/18 06:20 Labs: Laboratory Results - last 24 hr 04/05/18 04/05/18 04/05/18 06:20 06:20 06:20 WBC 11.2 H D RBC 3.97 Hgb 11.8 L Hct 36.3 MCV 91.4 D MCH 29.7 MCHC 32.5 RDW 13.8 Plt Count 387 MPV 9.8 Gran % 51.7 Lymph % (Auto) 34.8 [place] % (Auto) 5.8 Eos % (Auto) 7.2 H Baso % (Auto) 0.5 Gran # 5.78 Lymph # (Auto) 3.9 H [place] # (Auto) 0.7 H Eos # (Auto) 0.8 H Baso # (Auto) 0.06 PT 12.6 H INR 1.09 H APTT 30.5 D-Dimer, Quantitative Cancelled Sodium 143 Potassium 4.3 Chloride 106 Carbon Dioxide 24 Anion Gap 17 BUN 17 Creatinine 0.6 L Est GFR ( Amer) > 60 Est GFR (Non-Af Amer) > 60 Random Glucose 90 Calcium 9.0 Total Bilirubin 0.3 AST 32 ALT 29 Alkaline Phosphatase 63 Lactate Dehydrogenase 686 Total Creatine Kinase 168 Troponin I < 0.01 NT-Pro-B Natriuret Pep 50.2 Total Protein 8.1 Albumin 4.3 Globulin 3.8 Albumin/Globulin Ratio 1.2 Amylase 86 Lipase 164 Urine Color Urine Appearance Urine pH Ur Specific [place] Urine Protein Urine Glucose (UA) Urine Ketones Urine Blood Urine Nitrate Urine Bilirubin Urine Urobilinogen Ur Leukocyte Esterase Urine HCG, Qual 04/05/18 04/05/18 07:51 08:20 WBC RBC Hgb Hct MCV MCH MCHC RDW Plt Count MPV Gran % Lymph % (Auto) [place] % (Auto) Eos % (Auto) Baso % (Auto) Gran # Lymph # (Auto) [place] # (Auto) Eos # (Auto) Baso # (Auto) PT INR APTT D-Dimer, Quantitative < 200 Sodium Potassium Chloride Carbon Dioxide Anion Gap BUN Creatinine Est GFR ( Amer) Est GFR (Non-Af Amer) Random Glucose Calcium Total Bilirubin AST ALT Alkaline Phosphatase Lactate Dehydrogenase Total Creatine Kinase Troponin I NT-Pro-B Natriuret Pep Total Protein Albumin Globulin Albumin/Globulin Ratio Amylase Lipase Urine Color Yellow Urine Appearance Clear Urine pH 6.5 Ur Specific [place] 1.020 Urine Protein Negative Urine Glucose (UA) Negative Urine Ketones Negative Urine Blood Negative Urine Nitrate Negative Urine Bilirubin Negative Urine Urobilinogen 0.2 Ur Leukocyte Esterase Negative Urine HCG, Qual Negative Assessment & Plan - Assessment and Plan (Free Text) Assessment: 37 F who presents with epigastric/RUQ abdominal pain; ABUS shows cholelithiasis wihout evidence of acute cholecystitis Plan: -NPO -Analgesics/Anti-emetics PRN -IV fluids -GI/DVT ppx -Possible OR today or tomorrow for Laparoscopic Cholecystectomy -Will discuss with Dr. Jaden Cardenas PGY1 - Date & Time Date: 04/05/18 Time: 12:00
[2018-04-05] MEDS ORDERED: HYDROmorphone 0.5 mg/0.5 ml ISec IVP PRN (12:40)
--- NOTE | 2018-04-05 12:55 | CP.PCM.HP ---
History of Present Illness - History of Present Illness History of Present Illness: General Surgery H&P Note for Dr. Stanley CC: Recurrent symptomatic cholelithiasis 37 F with PMH that includes pulmonary embolism who presents for epigastric/RUQ pain. Patient was seen and evaluated in the ED. Patient states that her pain began last night around 1 or 2 am. Patient reports that she has had this pain two times in the past. She reports sudden onset and states pain had gotten progressively worse. She states she last ate around 8 pm. She admits to associated nausea with the pain but denies vomiting. She rates pain as severe when at worst. She describes pain as constant pressure located in epigastrium with radiation to RUQ. She also reports that intensity of pain fluctuates. She denies any specific aggravating or alleviating factors. She denies any recent illness or sick contacts. Denies fever/chills, palpitations, diarrhea, SOB, constipation, urinary symptoms, incontinence, numbness/tingling. PMH: pulmonary embolism Meds: Denies Allergy: Denies PSH: Denies FH: HTN, CAD Social: denies tobacco/illicit drug use, occasional EtOH use Present on Admission - Present on Admission Any Indicators Present on Admission: Yes History of DVT/PE: Yes History of Uncontrolled Diabetes: No Urinary Catheter: No Decubitus Ulcer Present: No Decubitus Ulcer Stage: Unstageable History Surgical Site Infection Following: None Review of Systems - Review of Systems All systems: reviewed and no additional remarkable complaints except (as per HPI ) Past Patient History - Infectious Disease Hx of Infectious Diseases: None - Tetanus Immunizations Tetanus Immunization: Unknown - Past Social History Smoking Status: Never Smoked - CARDIAC Hx Cardiac Disorders: No - PULMONARY Hx Respiratory Disorders: Yes Hx Pulmonary Embolism: Yes - NEUROLOGICAL Hx Neurological Disorder: No - HEENT Hx HEENT Problems: No - RENAL Hx Chronic Kidney Disease: No - ENDOCRINE/METABOLIC Hx Endocrine Disorders: No - HEMATOLOGICAL/ONCOLOGICAL Hx Blood Disorders: Yes Other/Comment: 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 - INTEGUMENTARY Hx Dermatological Problems: No - MUSCULOSKELETAL/RHEUMATOLOGICAL Hx Musculoskeletal Disorders: No - GASTROINTESTINAL Hx Gastrointestinal Disorders: No - GENITOURINARY/GYNECOLOGICAL Hx Genitourinary Disorders: No - PSYCHIATRIC Hx Psychophysiologic Disorder: No Hx Substance Use: No - SURGICAL HISTORY Hx Surgeries: No Meds Allergies/Adverse Reactions: Allergies Allergy/AdvReac Type Severity Reaction Status Date / Time No Known Allergies Allergy Verified 04/05/18 15:53 Physical Exam - Additional Findings Additional findings: Physical Exam - Constitutional Appears: Well, Non-toxic, No Acute Distress - Head Exam Head Exam: ATRAUMATIC, NORMOCEPHALIC - Eye Exam Eye Exam: EOMI, Normal appearance Pupil Exam: PERRL - ENT Exam ENT Exam: Mucous Membranes Moist - Neck Exam Neck exam: Positive for: Normal Inspection - Respiratory Exam Respiratory Exam: NORMAL BREATHING PATTERN - Cardiovascular Exam Cardiovascular Exam: REGULAR RHYTHM, +S1, +S2 - GI/Abdominal Exam GI & Abdominal Exam: Normal Bowel Sounds, Soft, Tenderness (epigastric/RUQ). absent: Distended, Firm, Guarding, Hernia, Rebound, Rigid - Extremities Exam Extremities exam: Positive for: normal capillary refill, pedal pulses present. Negative for: calf tenderness - Back Exam Back exam: absent: CVA tenderness (L), CVA tenderness (R) - Neurological Exam Neurological exam: Alert, CN II-XII Intact, Oriented x3 - Psychiatric Exam Psychiatric exam: Normal Affect, Normal Mood - Skin Skin Exam: Dry, Intact, Normal Color, Warm Results - Vital Signs Recent Vital Signs: Last Vital Signs Temp 98.3 F 04/05/18 09:33 Pulse 80 04/05/18 09:33 Resp 18 04/05/18 09:33 BP 117/77 04/05/18 09:33 Pulse Ox 100 04/05/18 09:33 - Labs Result Diagrams: 04/05/18 06:20 04/05/18 06:20 Labs: Laboratory Results - last 24 hr 04/05/18 04/05/18 04/05/18 06:20 06:20 06:20 WBC 11.2 H D RBC 3.97 Hgb 11.8 L Hct 36.3 MCV 91.4 D MCH 29.7 MCHC 32.5 RDW 13.8 Plt Count 387 MPV 9.8 Gran % 51.7 Lymph % (Auto) 34.8 [place] % (Auto) 5.8 Eos % (Auto) 7.2 H Baso % (Auto) 0.5 Gran # 5.78 Lymph # (Auto) 3.9 H [place] # (Auto) 0.7 H Eos # (Auto) 0.8 H Baso # (Auto) 0.06 PT 12.6 H INR 1.09 H APTT 30.5 D-Dimer, Quantitative Cancelled Sodium 143 Potassium 4.3 Chloride 106 Carbon Dioxide 24 Anion Gap 17 BUN 17 Creatinine 0.6 L Est GFR ( Amer) > 60 Est GFR (Non-Af Amer) > 60 Random Glucose 90 Calcium 9.0 Total Bilirubin 0.3 AST 32 ALT 29 Alkaline Phosphatase 63 Lactate Dehydrogenase 686 Total Creatine Kinase 168 Troponin I < 0.01 NT-Pro-B Natriuret Pep 50.2 Total Protein 8.1 Albumin 4.3 Globulin 3.8 Albumin/Globulin Ratio 1.2 Amylase 86 Lipase 164 Urine Color Urine Appearance Urine pH Ur Specific [place] Urine Protein Urine Glucose (UA) Urine Ketones Urine Blood Urine Nitrate Urine Bilirubin Urine Urobilinogen Ur Leukocyte Esterase Urine HCG, Qual 04/05/18 04/05/18 07:51 08:20 WBC RBC Hgb Hct MCV MCH MCHC RDW Plt Count MPV Gran % Lymph % (Auto) [place] % (Auto) Eos % (Auto) Baso % (Auto) Gran # Lymph # (Auto) [place] # (Auto) Eos # (Auto) Baso # (Auto) PT INR APTT D-Dimer, Quantitative < 200 Sodium Potassium Chloride Carbon Dioxide Anion Gap BUN Creatinine Est GFR ( Amer) Est GFR (Non-Af Amer) Random Glucose Calcium Total Bilirubin AST ALT Alkaline Phosphatase Lactate Dehydrogenase Total Creatine Kinase Troponin I NT-Pro-B Natriuret Pep Total Protein Albumin Globulin Albumin/Globulin Ratio Amylase Lipase Urine Color Yellow Urine Appearance Clear Urine pH 6.5 Ur Specific [place] 1.020 Urine Protein Negative Urine Glucose (UA) Negative Urine Ketones Negative Urine Blood Negative Urine Nitrate Negative Urine Bilirubin Negative Urine Urobilinogen 0.2 Ur Leukocyte Esterase Negative Urine HCG, Qual Negative - EKG Data EKG Interpreted by: Myself EKG shows normal: Sinus rhythm Rate: Normal - Imaging and Cardiology US - abdomen Status: Image reviewed by me, Report reviewed by me Additional comment: cholelithiasis without evidence of cholecystitis Assessment & Plan - Assessment and Plan (Free Text) Assessment: 37 F who presents with epigastric/RUQ abdominal pain; ABUS shows cholelithiasis without evidence of acute cholecystitis Plan: -NPO -Analgesics/Anti-emetics PRN -IV fluids -GI/DVT ppx -Possible OR for Laparoscopic Cholecystectomy -Will discuss with Dr. Jaden Cardenas PGY1 - Date & Time Date: 04/05/18 Time: 12:00
[2018-04-05] MEDS: Lactated Ringer's 1,000 ML IV SCH (15:15)
--- NOTE | 2018-04-05 17:00 | CARD ---
APPROVED REPORT EKG Measurement Heart [id number] <Conclusion> Normal sinus rhythm with sinus arrhythmia Normal ECG
[2018-04-05 18:16] VITALS: BMI 23.5
[2018-04-05] MEDS ORDERED: Pneumococcal 23-Valent Vaccine IM ONE (18:17)
[2018-04-06 06:47] LABS: BASO # 0.03 K/mm3 (0.0-2.0); BASO % 0.4 % (0.0-3.0); EOS # 0.9 (0.0-0.7); EOS % 12.5 % (1.5-5.0); GRAN # 2.84 (1.4-6.5); HEMOGLOBIN 11.5 g/dL (12.0-16.0); LYMPH # 2.8 (1.2-3.4); LYMPH % 40.8 % (22.0-35.0); MEAN CELL VOLUME 90.7 fl (80.0-105.0); MEAN PLATELET VOLUME 9.3 fl (7.0-11.0); MONO # 0.4 (0.1-0.6); MONO % 5.3 % (1.0-6.0); RBC 3.96 10^6/uL (3.5-6.1); RED CELL DISTRIBUTION WIDTH 13.8 % (11.5-14.5); WHITE BLOOD COUNT 6.9 10^3/ul (4.5-11.0)
[2018-04-06 06:57] LABS: INR 1.19 (0.93-1.08); PARTIAL THROMBOPLASTIN TIME 30.3 Seconds (25.1-36.5); PROTHROMBIN TIME 13.7 SECONDS (9.4-12.5)
[2018-04-06 07:30] LABS: ALB/GLOB RATIO 1.1 (1.1-1.8); ALT/SGPT 29 U/L (7-56); AST/SGOT 27 U/L (14-36); BLOOD UREA NITROGEN 9 mg/dL (7-21); CALCIUM 8.8 mg/dL (8.4-10.5); GFR AFRICAN-AMERICAN > 60; GFR NON-AFRICAN AMERICAN > 60
[2018-04-06] MEDS: Lactated Ringer's 1,000 ML IV SCH ×3 (07:41→14:32)
--- NOTE | 2018-04-06 07:42 | CP.PCM.PN ---
Objective - Vital Signs/Intake and Output Vital Signs (last 24 hours): Temp Pulse Resp BP Pulse Ox 98 F 67 18 117/72 100 04/05/18 18:00 04/05/18 18:00 04/05/18 18:00 04/05/18 18:00 04/05/18 18:00 Intake and Output: 04/06/18 04/06/18 06:59 18:59 Intake Total 240 Balance 240 - Medications Medications: Current Medications Hydromorphone HCl (Dilaudid) 0.5 mg IVP Q4H PRN PRN Reason: Pain, severe (8-10) Lactated Ringer's (Lactated Ringer's) 1,000 mls @ 125 mls/hr IV .Q8H [facility] Last Admin: 04/05/18 15:15 Dose: 125 mls/hr Ondansetron HCl (Zofran Inj) 4 mg IVP Q6H PRN PRN Reason: Nausea/Vomiting Pantoprazole Sodium (Protonix Inj) 40 mg IVP DAILY [facility] Last Admin: 04/05/18 15:13 Dose: 40 mg - Labs Labs: 04/06/18 06:15 04/06/18 06:15 PT 13.7 SECONDS (9.4-12.5) H 04/06/18 06:15 INR 1.19 (0.93-1.08) H 04/06/18 06:15 APTT 30.3 Seconds (25.1-36.5) 04/06/18 06:15
[2018-04-06 10:02] VITALS: BP 119/69; PULSE 74; RESP 20; TEMP 97.7; O2SAT 99
--- NOTE | 2018-04-06 15:05 | CP.PCM.DIS ---
Provider - Provider Date of Admission: 04/05/18 13:04 Attending physician: Rusty Stanley MD Consults: None Time Spent in preparation of Discharge (in minutes): 40 Hospital Course - Lab Results Lab Results: Most Recent Lab Values WBC 6.9 10^3/ul (4.5-11.0) D 04/06/18 06:15 RBC 3.96 10^6/uL (3.5-6.1) 04/06/18 06:15 Hgb 11.5 g/dL (12.0-16.0) L 04/06/18 06:15 Hct 35.9 % (36.0-48.0) L 04/06/18 06:15 MCV 90.7 fl (80.0-105.0) 04/06/18 06:15 MCH 29.0 pg (25.0-35.0) 04/06/18 06:15 MCHC 32.0 g/dl (31.0-37.0) 04/06/18 06:15 RDW 13.8 % (11.5-14.5) 04/06/18 06:15 Plt Count 353 10^3/uL (120.0-450.0) 04/06/18 06:15 MPV 9.3 fl (7.0-11.0) 04/06/18 06:15 Gran % 41.0 % (50.0-68.0) L 04/06/18 06:15 Lymph % (Auto) 40.8 % (22.0-35.0) H 04/06/18 06:15 [place] % (Auto) 5.3 % (1.0-6.0) 04/06/18 06:15 Eos % (Auto) 12.5 % (1.5-5.0) H 04/06/18 06:15 Baso % (Auto) 0.4 % (0.0-3.0) 04/06/18 06:15 Gran # 2.84 (1.4-6.5) 04/06/18 06:15 Lymph # (Auto) 2.8 (1.2-3.4) 04/06/18 06:15 [place] # (Auto) 0.4 (0.1-0.6) 04/06/18 06:15 Eos # (Auto) 0.9 (0.0-0.7) H 04/06/18 06:15 Baso # (Auto) 0.03 K/mm3 (0.0-2.0) 04/06/18 06:15 PT 13.7 SECONDS (9.4-12.5) H 04/06/18 06:15 INR 1.19 (0.93-1.08) H 04/06/18 06:15 APTT 30.3 Seconds (25.1-36.5) 04/06/18 06:15 D-Dimer, Quantitative < 200 ng/mL (0-243) 04/05/18 07:51 Sodium 143 mmol/L (132-148) 04/06/18 06:15 Potassium 3.9 mmol/L (3.6-5.0) 04/06/18 06:15 Chloride 106 mmol/L (98-107) 04/06/18 06:15 Carbon Dioxide 25 mmol/L (21-33) 04/06/18 06:15 Anion Gap 16 (10-20) 04/06/18 06:15 BUN 9 mg/dL (7-21) 04/06/18 06:15 Creatinine 0.6 mg/dl (0.7-1.2) L 04/06/18 06:15 Est GFR ( Amer) > 60 04/06/18 06:15 Est GFR (Non-Af Amer) > 60 04/06/18 06:15 Random Glucose 91 mg/dL (70-110) 04/06/18 06:15 Calcium 8.8 mg/dL (8.4-10.5) 04/06/18 06:15 Total Bilirubin 0.3 mg/dL (0.2-1.3) 04/06/18 06:15 AST 27 U/L (14-36) 04/06/18 06:15 ALT 29 U/L (7-56) 04/06/18 06:15 Alkaline Phosphatase 67 U/L (38-126) 04/06/18 06:15 Lactate Dehydrogenase 686 U/L (333-699) 04/05/18 06:20 Total Creatine Kinase 168 U/L (35-230) 04/05/18 06:20 Troponin I < 0.01 ng/mL 04/05/18 06:20 NT-Pro-B Natriuret Pep 50.2 pg/mL (0-450) 04/05/18 06:20 Total Protein 7.4 g/dL (5.8-8.3) 04/06/18 06:15 Albumin 4.0 g/dL (3.0-4.8) 04/06/18 06:15 Globulin 3.4 gm/dL 04/06/18 06:15 Albumin/Globulin Ratio 1.1 (1.1-1.8) 04/06/18 06:15 Amylase 86 U/L (35-125) 04/05/18 06:20 Lipase 164 U/L (23-300) 04/05/18 06:20 Urine Color Yellow (YELLOW) 04/05/18 08:20 Urine Appearance Clear (CLEAR) 04/05/18 08:20 Urine pH 6.5 (4.7-8.0) 04/05/18 08:20 Ur Specific [place] 1.020 (1.005-1.035) 04/05/18 08:20 Urine Protein Negative mg/dL (<30 mg/dL) 04/05/18 08:20 Urine Glucose (UA) Negative mg/dL (NEGATIVE) 04/05/18 08:20 Urine Ketones Negative mg/dL (NEGATIVE) 04/05/18 08:20 Urine Blood Negative (NEGATIVE) 04/05/18 08:20 Urine Nitrate Negative (NEGATIVE) 04/05/18 08:20 Urine Bilirubin Negative (NEGATIVE) 04/05/18 08:20 Urine Urobilinogen 0.2 E.U./dL (<1 E.U./dL) 04/05/18 08:20 Ur Leukocyte Esterase Negative [place]/uL (NEGATIVE) 04/05/18 08:20 Urine HCG, Qual Negative (NEGATIVE) 04/05/18 08:20 - Hospital Course Hospital Course: 37 F with PMH that includes pulmonary embolism who presents for epigastric/RUQ pain. Patient was seen and evaluated in the ED. Patient states that her pain began last night around 1 or 2 am. Patient reports that she has had this pain two times in the past. She reports sudden onset and states pain had gotten progressively worse. She states she last ate around 8 pm. She admits to associated nausea with the pain but denies vomiting. She rates pain as severe when at worst. She describes pain as constant pressure located in epigastrium with radiation to RUQ. She also reports that intensity of pain fluctuates. She denies any specific aggravating or alleviating factors. She denies any recent illness or sick contacts. Denies fever/chills, palpitations, diarrhea, SOB, constipation, urinary symptoms, incontinence, numbness/tingling. Patient was admitted for recurrent bilary colic. Patient was given analgesics/ Anti-emetics and made NPO. Overnight, her pain resolved. SHe was given liquids then advanced to regular diet. She did not develop any pain or nausea after eating. Since patient has not had unprovoked P.E work up to rule out hypercoagubility, potential surgery was postponed until work up is completed. Patient was referred to Heme/Onc, Dr. Rodriges, for outpatient follow up. Patient also instructed to follow Low fat diet and follow up with Dr. Stanley in his office WITHIN 1-2 WEEKS. (This is a summary of the hospital course. Please refer to EMR for more details. ) - Date & Time of H&P Date of H&P: 04/05/18 Time of H&P: 12:47 Discharge Exam - Head Exam Head Exam: ATRAUMATIC, NORMOCEPHALIC - Eye Exam Eye Exam: EOMI, Normal appearance Pupil Exam: PERRL - ENT Exam ENT Exam: Mucous Membranes Moist - Respiratory Exam Respiratory Exam: NORMAL BREATHING PATTERN - Cardiovascular Exam Cardiovascular Exam: REGULAR RHYTHM - GI/Abdominal Exam GI & Abdominal Exam: Normal Bowel Sounds, Soft. absent: Distended, Firm, Guarding, Rebound, Rigid, Tenderness - Extremities Exam Extremities exam: normal capillary refill, pedal pulses present - Back Exam Back exam: absent: CVA tenderness (L), CVA tenderness (R) - Neurological Exam Neurological exam: Alert, CN II-XII Intact, Normal Gait, Oriented x3 - Psychiatric Exam Psychiatric exam: Normal Affect, Normal Mood - Skin Skin Exam: Dry, Intact, Normal Color, Warm Discharge Plan - Follow Up Plan Condition: GOOD Disposition: HOME/ ROUTINE Instructions: Acute Abdomen (Belly Pain), Adult (DC), Colic (DC), Gallstones ( DC), Abdominal Pain (ED) Additional Instructions: No new medications to take at home. Follow a low fat diet. Follow up with your Primary Medical Doctor within 1-3 days. Follow up with General Surgery (Dr. Stanley) and Hematology/Oncology (Dr. Rodriges) as outpatient within 1-2 weeks. Please return to Emergency Department if symptoms persist or condition worsens. Referrals: Lucian Rodriges MD [Staff Provider] - Rusty Stanley MD [Staff Provider] -
== END 2018-04-06 16:12 | disposition home or self-care (01) ==
LOC: ED 05:57 → ERH 13:04 → 3RSO 14:53
PROVIDERS: ADMIT Specialist; ATTEND Specialist
DX: K80.20 Calculus of gallbladder without cholecystitis without obstruction (principal); Z86.711 Personal history of pulmonary embolism
CPT/HCPCS: 36415; 71045; 76700; 80053; 81003; 82150; 82550; 83615; 83690; 83880; 84484; 84703; 85025; 85378; 85610; 85730; 93005; 96361; 96372; 96374; 96376; 99285; C9113; G0378; J1644; J7120

== ENCOUNTER 2018-06-11 23:51 | Emergency (ER) | payer OTHER ==
[2018-06-12 00:05] VITALS: BMI 27.8
[2018-06-12] MEDS ORDERED: Morphine 4 mg/ml ISec IVP STA (00:24)
--- NOTE | 2018-06-12 00:27 | ED PDOC ---
Arrival/HPI - General Historian: Patient, Family - History of Present Illness Time/Duration: 4-6 hours Symptom Onset: Sudden Symptom Course: Unchanged, Worsening Quality: Stabbing, Burning Severity Level: 8 Activities at Onset: Rest, Eating - General Chief Complaint: Abdominal Pain Time Seen by Provider: 06/12/18 00:14 - History of Present Illness Narrative History of Present Illness (Text): 06/12/18 00:25 Patient is a 38 year old female with PMH of biliary colic and PE during who presents to ED with RUQ abdominal pain for the past six hours. She describes the pain as a stabbing, burning type pain that is worse with inspiration. She tried tylenol for the pain but this has not helped. The pain radiates to the right side of her back. She was found to have cholelithiasis on her prior visit in March 2018. She states that her current pain is worse than her prior episode. She also endorses nausea, vomiting x 3 times. She denies fever, chills, CP, SOB. (Beau Nevarez) Past Medical History - Provider Review Nursing Documentation Reviewed: Yes - Travel History Have you recently traveled outside [place] w/in the past 3 mons?: No - Past History Past History: No Previous - Infectious Disease Hx of Infectious Diseases: None - Tetanus Immunization Tetanus Immunization: Unknown - Past Medical History Past Medical History: No Previous - Cardiac Hx Cardiac Disorders: No - Pulmonary Hx Respiratory Disorders: Yes Hx Pulmonary Embolism: Yes - Neurological Hx Neurological Disorder: No - HEENT Hx HEENT Disorder: No - Renal Hx Renal Disorder: No - Endocrine/Metabolic Hx Endocrine Disorders: No - Hematological/Oncological Hx Blood Disorders: Yes Other/Comment: 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 - Integumentary Hx Dermatological Disorder: No - Musculoskeletal/Rheumatological Hx Musculoskeletal Disorders: No - Gastrointestinal Hx Gastrointestinal Disorders: No - Genitourinary/Gynecological Hx Genitourinary Disorders: No - Psychiatric Hx Psychophysiologic Disorder: No Hx Substance Use: No - Past Surgical History Past Surgical History: No Previous - Suicidal Assessment Feels Threatened In Home Enviroment: No Family/Social History - Physician Review Nursing Documentation Reviewed: Yes Family/Social History: No Known Family HX Smoking Status: Never Smoked Hx Alcohol Use: Yes (SOCIALLY DRINKS) Hx Substance Use: No Hx Substance Use Treatment: No Allergies/Home Meds Allergies/Adverse Reactions: Allergies No Known Allergies Allergy (Verified 04/05/18 15:53) Home Medications: Home Meds Medication Instructions Recorded Confirmed No Known Home Med 11/20/17 06/12/18 Review of Systems - Physician Review All systems were reviewed & negative as marked: Yes - Review of Systems Constitutional: absent: Fatigue, Fevers Eyes: absent: Vision Changes ENT: absent: Sore Throat, Rhinorrhea Respiratory: absent: SOB, Cough Cardiovascular: absent: Chest Pain, LOPEZ Gastrointestinal: Abdominal Pain, Nausea, Vomiting Genitourinary Female: absent: Dysuria, Frequency Musculoskeletal: absent: Arthralgias Skin: absent: Rash, Pruritis Neurological: absent: Headache Endocrine: absent: Diaphoresis Hemo/Lymphatic: absent: Adenopathy Psychiatric: absent: Anxiety, Depression Physical Exam Vital Signs Reviewed: Yes Temperature: Afebrile Blood Pressure: Normal Pulse: Regular Respiratory Rate: Normal Appearance: Positive for: Ill-Appearing, Uncomfortable Pain Distress: Moderate Mental Status: Positive for: Alert and Oriented X 3 - Systems Exam Head: Present: Atraumatic, Normocephalic Pupils: Present: PERRL Extroacular Muscles: Present: EOMI Conjunctiva: Present: Icteric Ears: Present: Normal Mouth: Present: Moist Mucous Membranes Pharnyx: Present: Normal. No: ERYTHEMA, EXUDATE Neck: Present: Normal Range of Motion. No: JVD Respiratory/Chest: Present: Clear to Auscultation. No: Wheezes, Rales, Rhonchi Cardiovascular: Present: Regular Rate and Rhythm, Normal S1, S2. No: Murmurs, Rub, Gallop Abdomen: Present: Tenderness (worst in RUQ). No: Rebound, Guarding, Mass/ Organomegaly, Scars Upper Extremity: Present: Normal Inspection. No: Cyanosis, Edema Lower Extremity: Present: Normal Inspection. No: Edema Neurological: Present: Speech Normal Skin: Present: Warm, Dry Psychiatric: Present: Alert, Oriented x 3 Vital Signs Temp Pulse Resp BP Pulse Ox 06/12/18 00:15 98.5 F 63 17 123/72 99 Medical Decision Making - Lab Interpretations I have reviewed the lab results: Yes Interpretation: Abnormal lab values (Mild leukocytosis, may be secondary to bacteruria, encouraged close follow up with emissions technician) - RAD Interpretation Lehr Attendant: Radiologist ED Course and Treatment: Impression: In agreement with resident note, which includes further HPI details. Patient was seen and evaluated with resident, came up with plan and treatment together. Pt, whose past medical history includes cholelithiasis and PE, presented to the Emergency department complaining of RUQ abdominal pain radiating to her back tonight with nausea and vomiting. Plan: -- US Abdomen -- Labs, lipase -- Zofran -- Protonix -- Zofran -- Morphine -- Reassess and disposition (Bladimir Miguel) 06/12/18 00:31 -Patient with hx of biliary colic presenting with worsening RUQ abdominal pain, nausea, vomiting -Icteric on exam but afebrile -Will perform abdominal US 06/12/18 02:59 -RUQ US without signs of acute cystitis, cholelithiasis is stable -Transvaginal US consistent with viable intrauterine -Instructed her to only take tylenol for pain as she is -Will discharge and encourage close follow up with cake former (Beau Nevarez) - Lab Interpretations Lab Results: 06/12/18 00:09 06/12/18 00:09 Lab Results 06/12/18 00:57: Urine Color Light yellow, Urine Appearance Sl cloudy, Urine pH 6.0, Ur Specific [place] 1.025, Urine Protein Trace H, Urine Glucose (UA) Negative, Urine Ketones Trace H, Urine Blood Trace-lysed H, Urine Nitrate Negative, Urine Bilirubin Negative, Urine Urobilinogen 0.2, Ur Leukocyte Esterase Negative, Urine RBC 0 - 2, Urine WBC Negative, Ur Epithelial Cells 3 - 4, Urine Bacteria Mod, Urine Other Mucus 06/12/18 00:09: Beta HCG, Quant [id number] H 06/12/18 00:09: Lipase 217 06/12/18 00:09: Sodium 141, Potassium 3.7, Chloride 106, Carbon Dioxide 24, Anion Gap 15, BUN 7, Creatinine 0.8, Est GFR ( Amer) > 60, Est GFR (Non- Af Amer) > 60, Random Glucose 120 H, Calcium 9.2, Total Bilirubin 0.4, AST 24, ALT 32, Alkaline Phosphatase 58, Total Protein 8.2, Albumin 4.5, Globulin 3.8, Albumin/Globulin Ratio 1.2 06/12/18 00:09: WBC 12.6 H D, RBC 4.05, Hgb 12.0, Hct 36.2, MCV 89.4, MCH 29.6, MCHC 33.1, RDW 14.6 H, Plt Count 353, MPV 9.5, Gran % 50.9, Lymph % (Auto) 37.4 H, Yell % (Auto) 5.9, Eos % (Auto) 5.5 H, Baso % (Auto) 0.3, Gran # 6.40, Lymph # (Auto) 4.7 H, Yell # (Auto) 0.7 H, Eos # (Auto) 0.7, Baso # (Auto) 0.04 - RAD Interpretation Narrative RAD Interpretations (Text): 06/12/18 02:41 Transvaginal US FINDINGS: Gestation: Single live intrauterine , ultrasound age is 5 weeks and 4 days. heart rate is 120 beats per minute. Placenta/amniotic fluid: Cannot be adequately evaluated due to the early gestational age. Uterus/cervix: Unremarkable. No myometrial mass. Ovaries: 7 cm cyst in the right ovary. Free fluid: No free fluid. IMPRESSION: 1. Single live intrauterine , ultrasound age is 5 weeks and 4 days. heart rate is 120 beats per minute. 2. 7 cm cyst in the right ovary Abdomen US Complete FINDINGS: Liver: Unremarkable. No mass. No intrahepatic bile duct dilation. Gallbladder: There are several gallstones. No wall thickening or pericholecystic fluid collection. Cabrera's sign is negative as per technologist note. Common bile duct: Unremarkable as visualized. No stones. No dilation. Pancreas: Pancreas evaluation is limited. Kidneys: Unremarkable. No stones. No solid mass. No hydronephrosis. Spleen: Unremarkable. No splenomegaly. Aorta: Unremarkable. No aneurysm. Inferior vena cava: Unremarkable. IMPRESSION: There are several gallstones. No wall thickening or pericholecystic fluid collection. Cabrera's sign is negative as per technologist note. (Beau Nevarez) Radiology Orders: 06/12/18 00:23 ABDOMEN COMPLETE [US] Stat 06/12/18 01:15 OB TRANSVAGINAL [US] Stat - Medication Orders Current Medication Orders: Discontinued Medications Ondansetron HCl (Zofran Inj) 4 mg IVP STAT STA Stop: 06/12/18 00:25 Disposition/Present on Arrival - Present on Arrival Any Indicators Present on Arrival: Yes History of DVT/PE: Yes History of Uncontrolled Diabetes: No Urinary Catheter: No History of Decub. Ulcer: No History Surgical Site Infection Following: None - Disposition Have Diagnosis and Disposition been Completed?: Yes Disposition Time: 03:01 Patient Plan: Discharge - Disposition Diagnosis: Biliary colic, , Cholelithiasis Disposition: HOME/ ROUTINE Patient Problems: Current Active Problems Problem Status Onset Biliary colic Acute Cholelithiasis Acute Acute Condition: GOOD Discharge Instructions (ExitCare): Medications and , Alcohol and , Avoiding Infections in , - The First Month, - The Second Month Referrals: Tiffany Castellano DO [Primary Care Provider] - [facility]] - Follow up with primary Forms: [employer] (Kazakh)
[2018-06-12 00:29] LABS: BASO # 0.04 K/mm3 (0.0-2.0); BASO % 0.3 % (0.0-3.0); EOS # 0.7 (0.0-0.7); EOS % 5.5 % (1.5-5.0); GRAN # 6.4 (1.4-6.5); GRAN % 50.9 % (50.0-68.0); LYMPH # 4.7 (1.2-3.4); LYMPH % 37.4 % (22.0-35.0); MEAN CELL VOLUME 89.4 fl (80.0-105.0); MEAN CORPUSCULAR HEMOGLOBIN 29.6 pg (25.0-35.0); MEAN CORPUSCULAR HGB CONC 33.1 g/dl (31.0-37.0); MEAN PLATELET VOLUME 9.5 fl (7.0-11.0); MONO # 0.7 (0.1-0.6); MONO % 5.9 % (1.0-6.0); RBC 4.05 10^6/uL (3.5-6.1); RED CELL DISTRIBUTION WIDTH 14.6 % (11.5-14.5)
[2018-06-12 00:36] LABS: WHITE BLOOD COUNT 12.6 10^3/ul (4.5-11.0)
[2018-06-12 00:39] LABS: ALB/GLOB RATIO 1.2 (1.1-1.8); ALBUMIN 4.5 g/dL (3.0-4.8); ALT/SGPT 32 U/L (7-56); AST/SGOT 24 U/L (14-36); BLOOD UREA NITROGEN 7 mg/dL (7-21); CALCIUM 9.2 mg/dL (8.4-10.5); GFR AFRICAN-AMERICAN > 60; GFR NON-AFRICAN AMERICAN > 60
[2018-06-12 01:17] LABS: URINE BILIRUBIN NEGATIVE (NEGATIVE); URINE BLOOD TRACE-LYSED (NEGATIVE); URINE GLUCOSE (UA) NEGATIVE (NEGATIVE); URINE LEUKOCYTE ESTERASE NEGATIVE Leu/uL (NEGATIVE); URINE PROTEIN TRACE mg/dL (<30 mg/dL); URINE UROBILINOGEN 0.2 E.U./dL (<1 E.U./dL)
[2018-06-12 01:18] LABS: URINE APPEARANCE SL CLOUDY (CLEAR); URINE COLOR LIGHT YELLOW (YELLOW)
[2018-06-12 01:33] LABS: URINE RBC 0 - 2 /hpf (0-2); URINE WBC NEGATIVE /hpf (0-6)
[2018-06-12 01:38] LABS: URINE BACTERIA MOD (NEG)
[2018-06-12 02:46] VITALS: RESP 17
[2018-06-12 03:13] VITALS: BP 122/62; PULSE 72; TEMP 98.2; O2SAT 100
--- NOTE | 2018-06-12 10:31 | US ---
Date of service: 06/12/2018 HISTORY: RUQ pain, hx biliary colic COMPARISON: None. TECHNIQUE: Grayscale imaging was performed. FINDINGS: LIVER: Measures 16.6 cm. There is diffuse increased echogenicity of the liver parenchyma. No mass. No intrahepatic bile duct dilatation. GALLBLADDER: The gallbladder is distended and there are multiple gallstones. No wall thickening or pericholecystic fluid. The sonographic Cabrera's sign is negative. COMMON BILE DUCT: Measures 0.9 mm. No stones. No dilatation. PANCREAS: Unremarkable as visualized. No mass. No ductal dilatation. RIGHT KIDNEY: Measures 10.9cm. Normal echogenicity. No calculus, mass, or hydronephrosis. LEFT KIDNEY: Measures 10.4cm. Normal echogenicity. No calculus, mass, or hydronephrosis. SPLEEN: Normal in size and contour. No mass. AORTA: No aneurysmal dilatation. IVC: Unremarkable. OTHER FINDINGS: None. IMPRESSION: Diffuse increased echogenicity in the liver may reflect hepatic steatosis however parenchymal infectious/ inflammatory etiologies cannot be entirely excluded. Clinical and laboratory correlation is advised. Cholelithiasis. A preliminary report was provided by [email or web address].
--- NOTE | 2018-06-12 11:31 | US ---
Date of service: 06/12/2018 PROCEDURE: OB Pelvic Ultrasound HISTORY: Abdominal pain COMPARISON: None available. FINDINGS: UTERUS: Single live intrauterine gestation. CRL measures 0.28 cm equivalent to 5 weeks and 6 days gestatioin Gestational sac diameter measures 1.4 cm equivalent to 5 weeks and 4 days gestation age (Ultrasound estimated): 5 weeks and 5 days Date of delivery (Ultrasound estimated) : 02/07/2019 Heart rate: 120 bpm. Rakel-gestational hemorrhage: None. Measures 10.6 X 6.8 X 7.1 cm. Anteverted and mildly enlarged. No fibroid or other mass lesion seen. CERVIX: Long and closed. No cervical abnormality seen. RIGHT OVARY: Measures 7.1 x 6.1 x 7.9 cm. No mass. Normal flow. There is a 6.1 x 4.9 x 7.3 cm simple cyst. LEFT OVARY: Measures 2.3 x 2.1 x 2.3 cm. No mass. Normal flow. FREE FLUID: None. OTHER FINDINGS: None. IMPRESSION: Single live intrauterine gestation with mean gestational age of 5 weeks and 5 days. The estimated date of delivery by ultrasound is 02/07/2019. 6.1 x 4.9 x 7.3 cm simple cyst in the right ovary. Clinical follow-up is advised. Follow-up ultrasound in 3-6 month interval is recommended to assess stability/resolution. A preliminary report was provided by [facility].
== END 2018-06-12 03:13 | disposition home or self-care (01) ==
LOC: ED 23:51
DX: O99.611 Diseases of the digestive system complicating pregnancy, first trimester (principal); K80.70 Calculus of gallbladder and bile duct without cholecystitis without obstruction; Z3A.01 Less than 8 weeks gestation of pregnancy
CPT/HCPCS: 76700; 76817; 80053; 81001; 83690; 84702; 85025; 96374; 99283; J2405

== ENCOUNTER 2018-09-21 00:04 | Emergency (ER) | payer OTHER ==
[2018-09-21 00:04] VITALS: BMI 27.8
--- NOTE | 2018-09-21 00:28 | ED PDOC ---
Arrival/HPI - General Chief Complaint: Chest Pain Time Seen by Provider: 09/21/18 00:19 Historian: Patient, Spouse - History of Present Illness Narrative History of Present Illness (Text): 09/21/18 00:27 Berenice Ulloa is a 38 year old female, whose past medical history includes cholelithiasis, biliary colic, and PE during her previous (currently on Lovenox), currently 4 month , P:4 A:0, who presented to the Emergency department complaining of abdominal pain. 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 Patient denies any fever, chills, chest pain, shortness of breath, diarrhea, neck pain, headache, dizziness, or any other complaints. Symptom Onset: Gradual Symptom Course: Unchanged Activities at Onset: Light Context: Home Past Medical History - Provider Review Nursing Documentation Reviewed: Yes - Past History Past History: No Previous - Infectious Disease Hx of Infectious Diseases: None - Tetanus Immunization Tetanus Immunization: Unknown - Past Medical History Past Medical History: No Previous - Cardiac Hx Cardiac Disorders: No - Pulmonary Hx Respiratory Disorders: Yes Hx Pulmonary Embolism: Yes - Neurological Hx Neurological Disorder: No - HEENT Hx HEENT Disorder: No - Renal Hx Renal Disorder: No - Endocrine/Metabolic Hx Endocrine Disorders: No - Hematological/Oncological Hx Blood Disorders: Yes Other/Comment: 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 - Integumentary Hx Dermatological Disorder: No - Musculoskeletal/Rheumatological Hx Musculoskeletal Disorders: No - Gastrointestinal Hx Gastrointestinal Disorders: No - Genitourinary/Gynecological Hx Genitourinary Disorders: No - Psychiatric Hx Psychophysiologic Disorder: No Hx Substance Use: No - Past Surgical History Past Surgical History: No Previous - Suicidal Assessment Feels Threatened In Home Enviroment: No Family/Social History - Physician Review Nursing Documentation Reviewed: Yes Family/Social History: Unknown Family HX Smoking Status: Never Smoked Hx Alcohol Use: Yes (SOCIALLY DRINKS) Hx Substance Use: No Hx Substance Use Treatment: No Allergies/Home Meds Allergies/Adverse Reactions: Allergies No Known Allergies Allergy (Verified 04/05/18 15:53) Home Medications: Home Meds Medication Instructions Recorded Confirmed No Known Home Med 11/20/17 06/12/18 Review of Systems - Physician Review All systems were reviewed & negative as marked: Yes - Review of Systems Constitutional: Normal. absent: Fevers Eyes: Normal ENT: Normal Respiratory: Normal. absent: SOB, Cough Gastrointestinal: Abdominal Pain, Vomiting. absent: Diarrhea Genitourinary Female: Normal. absent: Dysuria, Frequency, Hematuria, Urine Output Changes Musculoskeletal: Normal. absent: Back Pain, Neck Pain Skin: Normal. absent: Rash Neurological: Normal. absent: Headache, Dizziness Endocrine: Normal Hemo/Lymphatic: Normal Psychiatric: Normal Physical Exam Vital Signs Reviewed: Yes Temperature: Afebrile Blood Pressure: Normal Pulse: Regular Respiratory Rate: Normal Appearance: Positive for: Well-Appearing, Non-Toxic, Comfortable Pain Distress: None Mental Status: Positive for: Alert and Oriented X 3 - Systems Exam Head: Present: Atraumatic, Normocephalic Pupils: Present: PERRL Extroacular Muscles: Present: EOMI Conjunctiva: Present: Normal Mouth: Present: Moist Mucous Membranes Neck: Present: Normal Range of Motion Respiratory/Chest: Present: Clear to Auscultation, Good Air Exchange. No: Respiratory Distress, Accessory Muscle Use Cardiovascular: Present: Regular Rate and Rhythm, Normal S1, S2. No: Murmurs Abdomen: Present: Tenderness (Upper abdominal tenderness). No: Distention, Peritoneal Signs Back: Present: Normal Inspection. No: CVA Tenderness, Midline Tenderness, Paraspinal Tenderness Upper Extremity: Present: Normal Inspection. No: Cyanosis, Edema Lower Extremity: Present: Normal Inspection. No: Edema Neurological: Present: GCS=15, CN II-XII Intact, Speech Normal Skin: Present: Warm, Dry, Normal Color. No: Rashes Psychiatric: Present: Alert, Oriented x 3, Normal Insight, Normal Concentration Medical Decision Making ED Course and Treatment: 09/21/18 00:27 Impression: 38 year old female complaining of upper abdominal pain, nausea, and vomiting x 1 tonight. Plan: -- US Gallbladder and Pancreas -- US Age -- Labs, lipase -- IV fluids -- Reassess and disposition Progress Notes: Reviewed EKG, NSR at [address]-segment elevations or depressions, no T-wave inversions, normal intervals. 09/21/18 03:27 Reviewed radiology, US Age: Single, live intrauterine gestation. Normal cervical length measuring 4.3 cm. Posterior placenta. No evidence of placenta previa. Variable presentation. motion is identified. heart rate 153 beats per minute. Estimated gestational age is 19 weeks and 6 days. Nonvisualization of the right ovary. Normal left ovary. Impression: Single, live intrauterine gestation. No abnormality is seen. Electronically signed on Sep 21, 2018 3:09:59 AM EST by: Iqra Calix M.D., Certified by [facility] HICKMAN, Neuroradiology US Gallbladder and Pancreas: The liver is normal in size measuring 16.8 cm. Cholelithiasis without evidence of acute cholecystitis. Normal gallbladder wall thickness measuring 2.2 mm. Nondilated common bile duct measuring 4.3 mm. Normal pancreas. Unremarkable IVC. Unremarkable right kidney measuring 10.2x4.3x5.8 cm. Mild fullness of the right collecting system. Impression: Mild fullness of the right collecting system. Cholelithiasis without acute cholecystitis. Electronically signed on Sep 21, 2018 3:11:51 AM EST by: Iqra Calix M.D., Certified by PANFIL[facility] HICKMAN, Neuroradiology 09/21/18 03:50 On reassessment, pt asymptomatic, states she feels 100% better. Pt requesting to go home. Patient is stable for discharge. Patient was instructed to follow up with physician or return if symptoms worsen or new concerning symptoms arise. - Lab Interpretations I have reviewed the lab results: Yes - RAD Interpretation Shake Loader: Radiologist - EKG Interpretation Interpreted by ED Physician: Yes Type: 12 lead EKG - Scribe Statement The provider has reviewed the documentation as recorded by the Tyree Kate Provider Scribe Attestation: All medical record entries made by the Scribe were at my direction and personally dictated by me. I have reviewed the chart and agree that the record accurately reflects my personal performance of the history, physical exam, medical decision making, and the department course for this patient. I have also personally directed, reviewed, and agree with the discharge instructions and disposition. Disposition/Present on Arrival - Present on Arrival Any Indicators Present on Arrival: No History of DVT/PE: Yes History of Uncontrolled Diabetes: No Urinary Catheter: No History of Decub. Ulcer: No History Surgical Site Infection Following: None - Disposition Have Diagnosis and Disposition been Completed?: Yes Diagnosis: Cholelithiasis, Normal Disposition: HOME/ ROUTINE Disposition Time: 03:47 Patient Plan: Discharge Patient Problems: Current Active Problems Problem Status Onset Cholelithiasis Acute Normal Acute Condition: GOOD Discharge Instructions (ExitCare): Gallstones (DC) Additional Instructions: Avoid fatty foods/eat small amounts at a time/follow up with your doctor this week Referrals: Tiffany Castellano DO [Primary Care Provider] - Follow up with primary Forms: [facility] (Hungarian)
[2018-09-21] MEDS ORDERED: Sodium Chloride 0.9% 1,000 ML IV SCH (00:45)
[2018-09-21 00:56] LABS: HEMOGLOBIN 10.5 g/dL (12.0-16.0); MEAN CORPUSCULAR HGB CONC 32.5 g/dl (31.0-37.0); MEAN PLATELET VOLUME 9.8 fl (7.0-11.0); RBC 3.39 10^6/uL (3.5-6.1); RED CELL DISTRIBUTION WIDTH 14.3 % (11.5-14.5); WHITE BLOOD COUNT 9.3 10^3/uL (4.5-11.0)
[2018-09-21 00:59] LABS: MEAN CELL VOLUME 95.3 fl (80.0-105.0)
[2018-09-21 01:33] LABS: ALB/GLOB RATIO 1.1 (1.1-1.8); ALBUMIN 3.8 g/dL (3.0-4.8); ALT/SGPT 19 U/L (7-56); AST/SGOT 21 U/L (14-36); BLOOD UREA NITROGEN 9 mg/dL (7-21); CALCIUM 9.5 mg/dL (8.4-10.5); GFR NON-AFRICAN AMERICAN > 60; LIPASE 151 U/L (23-300)
[2018-09-21 03:58] VITALS: BP 127/74; PULSE 78; RESP 17; TEMP 98; O2SAT 97
--- NOTE | 2018-09-21 10:41 | US ---
Date of service: 09/21/2018 PROCEDURE: OB Pelvic Ultrasound HISTORY: abdominal pain LMP: 05/07/2018 indicating gestational age of 19 weeks 4 days. COMPARISON: Obstetric ultrasound 06/12/2018. FINDINGS: UTERUS: Gestational sac: Single intrauterine gestation identified in breech lie with feet as the presenting parts. Heart rate: 133 bpm. There is a posterior fundal placenta with no evidence of placental abruption or previa. No suspicious myometrial findings as imaged. The following mean parameters were obtained: Biparietal diameter 4.6 cm corresponds to 20 weeks 0 days. Head circumference 17.0 cm corresponds to 19 weeks 4 days. Abdominal circumference 14.4 cm corresponds to 19 weeks 5 days. Femur length 3.2 cm corresponds 20 weeks 0 days. Average ultrasonic age 19 weeks 6 days. HC/AC ratio 1.18 which falls within the normal range. Date of delivery (Ultrasound estimated) : 02/09/2019. Urinary bladder and abdominal umbilical cord insertion appear unremarkable with remainder of the anatomy not clearly demonstrated. Follow-up full anatomical survey can be performed as indicated. CERVIX: Measures 4.3 cm. Long and closed. No cervical abnormality seen. RIGHT OVARY: Not identified. No definite suspicious right adnexal findings appreciated grossly. LEFT OVARY: Measures 2.4 x 1.5 x 2.5 cm. No solid mass. Normal flow. FREE FLUID: None. OTHER FINDINGS: None. IMPRESSION: A single viable intrauterine gestation is identified in breech lie with an average ultrasonic age of 19 weeks 6 days representing normal interval growth compared prior obstetric ultrasound 06/12/2018 (5 weeks 5 days then). No placental abruption or previa appreciable. Extremely limited anatomical survey. Consider follow-up ultrasonography for full survey if not already performed. Concordant preliminary report from Kristina, 09/21/2018 3:09 a.m..
--- NOTE | 2018-09-21 10:46 | US ---
Date of service: 09/21/2018 HISTORY: upper abdominal pain COMPARISON: None. TECHNIQUE: Sonographic evaluation of the right upper quadrant of the abdomen. FINDINGS: LIVER: Measures 16.8 cm in length. Normal echogenicity of the liver parenchyma. No mass. No intrahepatic bile duct dilatation. GALLBLADDER: Gallbladder is distended with no significant mural thickening. No pericholecystic fluid collection is evident however calculi identified clustered at the dependent portion approaching the neck. No reported sonographic Cabrera sign. COMMON BILE DUCT: Measures 4.3 mm. No stones. No dilatation. PANCREAS: The tail of the pancreas is obscured by overlying bowel gas with remainder unremarkable. RIGHT KIDNEY: Measures 10.2 cm in length. Normal echogenicity. No urolithiasis or definitive cystic or solid parenchymal mass appreciable. There is limited fullness of the overall right renal collecting system. AORTA: No aneurysmal dilatation. IVC: Unremarkable. OTHER FINDINGS: None . IMPRESSION: Limited fullness of the right renal collecting system is identified without overt hydronephrosis appreciable at this time. Cholelithiasis. No acute gallbladder changes or definitive biliary tree dilatation appreciable. Concordant preliminary report from Kristina, 09/21/2018, 3:11 a.m..
--- NOTE | 2018-09-21 18:44 | CARD ---
APPROVED REPORT Date of service: 09/21/2018 EKG Measurement Heart [id number] <Conclusion> Normal sinus rhythm Normal ECG
== END 2018-09-21 03:59 | disposition home or self-care (01) ==
LOC: ED 00:04
DX: O99.612 Diseases of the digestive system complicating pregnancy, second trimester (principal); K80.20 Calculus of gallbladder without cholecystitis without obstruction; Z3A.19 19 weeks gestation of pregnancy
CPT/HCPCS: 76705; 76815; 80053; 83690; 85027; 93005; 96361; 96374; 99283; J2405; J7030